=== PATIENT | female | born 1945 | race Caucasian/White ===

== ENCOUNTER → 2019-06-16 15:47 | Outpatient (CLI) | payer MEDICARE, SELFPAY ==
--- NOTE | ~2019-06-16 | MM_ITS ---
EXAMINATION: MM screening concepción BI w [place] HISTORY: Screening mammogram TECHNIQUE: Craniocaudal and mediolateral oblique 3-D tomosynthesis images were obtained and synthetic 2-D images were generated. CAD analysis was submitted and interpreted. COMPARISON: 01/31/2018 bilateral digital screening mammogram 01/31/2016 diagnostic right digital mammogram 12/13/2015 diagnostic right digital mammogram 05/26/2015 diagnostic right digital mammogram and complete right breast ultrasound 05/11/2015 bilateral digital screening mammogram BREAST PARENCHYMAL COMPOSITION: There are scattered areas of fibroglandular density. FINDINGS: There is a biopsy marker on the right; history of prior benign right breast biopsy. Scattered bilateral punctate benign microcalcifications. There is a calcified microhematoma on the le ft. There is no evidence of suspicious mass, calcification, or architectural distortion to suggest ma lignancy in either breast. There has been no suspicious interval change. IMPRESSION: 1. No mammographic evidence of malignancy. 2. Recommend routine screening mammography in one year. BI-RADS Category 1: Negative Reviewed, dictated and finalized at location A. 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
== END ==
PROVIDERS: PCP Emergency Medicine; Visit Provider Emergency Medicine
DX: Z12.31 Encounter for screening mammogram for malignant neoplasm of breast (principal)
CPT/HCPCS: 77063; 77067

== ENCOUNTER → 2019-06-19 11:22 | Outpatient (CLI) | payer MEDICARE, SELFPAY ==
--- NOTE | ~2019-06-19 | DEXA_ITS ---
Bone Density Report Name: Leisa Boyd Age: 73 Sex: Female Ethnicity: White Date of : 1945 Indication: postmenopausal; screening for osteoporosis; height loss; hysterectomy; Referring Provider: ADRIÁN SERRANO Study: Bone densitometry was performed. Exam Date: June 19, 2019 Accession number: [id number] Bone Density: Region BMD T-score Z-score Classification Femoral Neck (Left) 0.768 -0.7 1.2 Normal Total Hip (Left) 0.892 -0.4 1.3 Normal Femoral Neck (Right) 0.761 -0.8 1.2 Normal Total Hip (Right) 0.859 -0.7 1.0 Normal Total Hip Mean 0.876 -0.6 1.2 Normal World Health Organization criteria for BMD impression classify patients as: Normal (T-score at or above -1.0), Osteopenia (T-score between -1.0 and -2.5), or Osteoporosis (T-score at or below -2.5). 10-year Fracture Risk: FRAX not reported because: All T-scores for Spine Total, Hip Total, Femoral Neck at or above -1.0 Clinical Information Provided by Patient: Has used the following medications: Vitamin D Has the following medical conditions: Hysterectomy Patient maximum height was 64.0 Menopause Age: 37 No regular weight bearing exercise Drinks caffeinated beverages Onset of menses at age 12 Number of children 2 Impression: The patient has normal bone mass. Discussion: BONE DENSITY IS ABOVE THE MINIMUM DESIRABLE LEVEL AT ALL SKELETAL SITES TESTED. This patient?s bone mineral density is above the minimum desirable level (T-score -1.0 or better) at all sites measured. The patient should follow a healthful lifestyle (good nutrition with adequate calcium and vitamin D, and appropriate weight-bearing exercise). Follow-Up: Consider repeating this study in 5 years or sooner if there is some new clinical indication. Reported by: EDVIN on 06/19/2019 12:00:00 PM. Reviewed, dictated and finalized at location AMaggie [facility]ITAL[facility]
== END ==
PROVIDERS: Visit Provider Emergency Medicine
DX: Z13.820 Encounter for screening for osteoporosis (principal); Z78.0 Asymptomatic menopausal state
CPT/HCPCS: 77080

== ENCOUNTER → 2020-08-25 16:38 | Outpatient (CLI) | payer MEDICARE, SELFPAY ==
--- NOTE | ~2020-08-25 | MM_ITS ---
EXAMINATION: MM screening [facility] BI w [place] HISTORY: Screening mammogram TECHNIQUE: Craniocaudal and mediolateral oblique 3-D tomosynthesis images were obtained and synthetic 2-D images were generated. CAD analysis was submitted and interpreted. COMPARISON: 06/16/2019, 01/31/2018, 01/31/2016, 12/13/2015 BREAST PARENCHYMAL COMPOSITION: There are scattered areas of fibroglandular density. FINDINGS: There is no evidence of suspicious mass, calcification, or architectural distortion to sugg est malignancy in either breast. There has been no suspicious interval change. IMPRESSION: 1. No mammographic evidence of malignancy. 2. Recommend routine screening mammography in one year. BI-RADS Category 1: Negative Reviewed, dictated and finalized at location A.
== END ==
PROVIDERS: PCP Emergency Medicine; Visit Provider Emergency Medicine
DX: Z12.31 Encounter for screening mammogram for malignant neoplasm of breast (principal)
CPT/HCPCS: 77063; 77067

== ENCOUNTER 2021-04-26 00:27 | Day surgery (SDC) | payer MEDICARE, SELFPAY ==
[2021-04-13 14:45] VITALS: BMI 32.0
[2021-04-26 10:00] VITALS: BP 132/102; PULSE 105; RESP 18; TEMP 36.5; O2SAT 96
--- NOTE | 2021-04-26 10:10 | WPDANESEPPF ---
Anes - Initial Pre Proc Eval Procedure: Operation Date: 04/26/21 11:30 Proposed Procedures p Screening Colonoscopy - Tavo Teixeira MD Date/Time: 04/26/21 10:10 Surgeon: Tavo Teixeira MD Pre Op Diagnosis: neoplasm screening Patient Data Age: 75 Gender: F Height: 1.6 m Weight: 80.5 kg Last Vital Signs Temp 97.7 F 04/26/21 10:00 Pulse 105 H 04/26/21 10:00 Resp 18 04/26/21 10:00 BP 132/102 H 04/26/21 10:00 Pulse Ox 96 04/26/21 10:00 Allergies Allergy/AdvReac Type Severity Reaction Status Date / Time acetaminophen Allergy Unknown RASH/ITCHIN Verified 04/26/21 09:58 G POISON SUMAC Allergy Severe Unknown Uncoded 05/25/19 10:09 POISON JOSE FRANCISCO Allergy Unknown Unknown Uncoded 05/25/19 10:09 POISON [place]AK Allergy Unknown Unknown Uncoded 05/25/19 10:09 Home Medications Medication Instructions Recorded Confirmed Type cholecalciferol (vitamin D3) 125 5,000 unit PO DAILY 05/25/19 04/13/21 History mcg (5,000 unit) capsule mecobalamin (vitamin B12) 1,000 1,000 mcg SUBLINGUAL DAILY 05/25/19 04/13/21 History mcg disintegrating tablet,sublingual naproxen 500 mg tablet 500 mg PO DAILY PRN tablet 05/25/19 04/13/21 History sertraline 100 mg tablet See Rx Instructions .ROUTE 03/27/21 04/13/21 Rx .COMPLEX #90 tablet Patient hx anesthesia problems: none Family hx anesthesia problems: none Results Review: All pre-operative results and documents have been reviewed as part of the pre-operative evaluation. [facility] Past Medical History Medical History (Updated 02/28/21 @ 11:50 by Brandee Randhawa) Acute bacterial tonsillitis Anemia Arthritis Chicken pox Depression Lack of bladder control Ovarian cyst (~1970) Scarlet fever Vaginal infection Surgical History Surgical History H/O total hysterectomy (~1985) History of laminectomy (~2014) History of spinal fusion (~2014) L2-L5 Family History Family History Mother Hypertension Family history of arthritis Sibling Hypertension Family history of elevated blood lipids Grandparent Family history of malignant neoplasm of breast Family history of emphysema Family history of heart disease in male family member before age 55 Father Family history of coronary artery disease Family history of heart disease in male family member before age 55 Social History Social History Smoking status: Never smoker Alcohol intake: current Drinks per week: 14 Substance use: never Substance use type: does not use Living arrangements: alone Spiritual care concerns: No Anes - Eval Final PreProcedure Day of Procedure 04/26/21 10:10 Patient weight: obese Heart: regular rate and rhythm Airway: Mallampati scale class II Neurological: alert and oriented Last oral intake: >/= 8 hours ASA classification: II Emergent: no Anesthetic plan: proceed Anesthesia type and monitoring: general GIVS and standard monitoring Results Review: All pre-operative results and documents have been reviewed as part of the pre-operative evaluation. Informed Consent: The patient's anesthetic plan and its attendant risks and benefits were discussed with the patient/family/POA. Questions were solicited and answers provided to the satisfaction of the patient/family/POA.
[2021-04-26] MEDS: LACTATED RINGERS 1,000 ML 150 ML IV CONT (10:11)
--- NOTE | 2021-04-26 10:43 | PM.HPGS ---
History of Present Illness History of Present Illness Consent: Risks, benefits, and alternatives have been discussed and questions answered. Patient agrees to proceed with procedure. Chief complaint: neoplasm screening Narrative: Leisa Boyd is a 75 year old female with history of colon polyp, she is due to have another one Review of Systems Constitutional: Constitutional: Denies headache(s) and Denies weakness Eyes: Eyes: Denies blurry vision ENT: Reports Normal hearing present, Denies headache(s) and Denies neck pain Cardiovascular: Cardiovascular: Denies chest pain and Denies dyspnea Respiratory: Respiratory: Denies dyspnea Gastrointestinal: Gastrointestinal: Reports no additional gastrointestinal complaints Genitourinary: Genitourinary: Denies dysuria Musculoskeletal: Musculoskeletal: Denies neck pain Integumentary/Breasts: Skin/Breast: Denies dry skin Neurologic: Reports Normal hearing present, Denies headache(s) and Denies weakness Psychiatric: Psychiatric: Denies anxiety Endocrine: Endocrine: Denies change in body appearance Hematologic/Lymphatic: Hematologic/Lymphatic: Denies easy bleeding Allergic/Immunologic: Allergic/Immunologic: Denies urticaria PMFSH Past Medical History Medical History (Updated 02/28/21 @ 11:50 by Brandee Randhawa) Acute bacterial tonsillitis Anemia Arthritis Chicken pox Depression Lack of bladder control Ovarian cyst (~1970) Scarlet fever Vaginal infection Surgical History Surgical History H/O total hysterectomy (~1985) History of laminectomy (~2014) History of spinal fusion (~2014) L2-L5 Family History Family History Mother Hypertension Family history of arthritis Sibling Hypertension Family history of elevated blood lipids Grandparent Family history of malignant neoplasm of breast Family history of emphysema Family history of heart disease in male family member before age 55 Father Family history of coronary artery disease Family history of heart disease in male family member before age 55 Social History Social History Smoking status: Never smoker Alcohol intake: current Drinks per week: 14 Substance use: never Substance use type: does not use Living arrangements: alone Spiritual care concerns: No Meds Home Medications and Allergies Home Medications Medication Instructions Recorded Confirmed Type cholecalciferol (vitamin D3) 125 5,000 unit PO DAILY 05/25/19 04/13/21 History mcg (5,000 unit) capsule mecobalamin (vitamin B12) 1,000 1,000 mcg SUBLINGUAL DAILY 05/25/19 04/13/21 History mcg disintegrating tablet,sublingual naproxen 500 mg tablet 500 mg PO DAILY PRN tablet 05/25/19 04/13/21 History sertraline 100 mg tablet See Rx Instructions .ROUTE 03/27/21 04/13/21 Rx .COMPLEX #90 tablet Allergies Allergy/AdvReac Type Severity Reaction Status Date / Time acetaminophen Allergy Unknown RASH/ITCHIN Verified 04/26/21 09:58 G POISON SUMAC Allergy Severe Unknown Uncoded 05/25/19 10:09 POISON JOSE FRANCISCO Allergy Unknown Unknown Uncoded 05/25/19 10:09 POISON [place] Allergy Unknown Unknown Uncoded 05/25/19 10:09 Vital Signs Vital Signs - 24 hr 04/26/21 10:00 Temperature 97.7 F Pulse Rate 105 H Respiratory Rate 18 Blood Pressure 132/102 H Pulse Oximetry 96 Exam Const: General: comfortable and no acute distress HENMT: General nose exam: Normal nares present Eyes: General: appearance normal, both eyes and all related structures Neck: Neck: no JVD Resp: Auscultation: clear to auscultation bilaterally Cardio: Rate: regular rate Rhythm: regular rhythm GI: Inspection: non-distended GI Palp: Yes Soft to palpation Skin: General skin exam: normal color Neuro: General: gait normal Speech: normal speech Extrem: General: no
[2021-04-26 11:02] VITALS: BP 106/61; PULSE 78; RESP 20; O2SAT 94
[2021-04-26 11:12] VITALS: BP 105/61; PULSE 77; RESP 25; O2SAT 95
[2021-04-26 11:22] VITALS: BP 120/72; PULSE 69; RESP 24; O2SAT 95
== END 2021-04-26 11:34 | disposition home or self-care (01) ==
PROVIDERS: PCP Emergency Medicine; Visit Provider Internal Medicine Gastroenterology
PROC: 0DJD8ZZ Inspection of Lower Intestinal Tract, Via Natural or Artificial Opening Endoscopic (ICD-10-PCS; CPT 45378; principal; 2021-04-26 11:30)
DX: Z12.11 Encounter for screening for malignant neoplasm of colon (principal); D12.5 Benign neoplasm of sigmoid colon; D12.0 Benign neoplasm of cecum; F32.A Depression, unspecified; Z98.1 Arthrodesis status
CPT/HCPCS: 45385; 88305; J7120

== ENCOUNTER → 2022-08-01 11:01 | Outpatient (CLI) | payer MEDICARE, SELFPAY ==
--- NOTE | ~2022-08-01 | MM_ITS ---
EXAMINATION: MM screening concepción BI [place] HISTORY: Screening TECHNIQUE: Craniocaudal and mediolateral oblique 3-D tomosynthesis images were obtained and synthetic 2-D images were generated. CAD analysis was submitted and interpreted. COMPARISON: Comparison to multiple prior studies sequentially, with oldest reviewed study dated 05/26. BREAST PARENCHYMAL COMPOSITION: There are scattered areas of fibroglandular density. FINDINGS: There is no evidence of suspicious mass, calcification, or architectural distortion to sugg est malignancy in either breast. There has been no suspicious interval change. IMPRESSION: 1. No mammographic evidence of malignancy. 2. Recommend routine screening mammography in one year. BI-RADS Category 1: Negative Reviewed, dictated and finalized at location A.
--- NOTE | ~2022-08-01 | DEXA_ITS ---
Bone Density Report Name: JEANNE MUIR Age: 77 Sex: Female Ethnicity: White Date of : 1945 Indication: postmenopausal; screening for osteoporosis; height loss; prior fracture; hysterectomy; Referring Provider: ADRIÁN SERRANO Study: Bone densitometry was performed. Exam Date: August 01, 2022 Accession number: [id number] Bone Density: Region BMD T-score Z-score Classification Femoral Neck (Left) 0.728 -1.1 1.0 Osteopenia Total Hip (Left) 0.894 -0.4 1.4 Normal Femoral Neck (Right) 0.729 -1.1 1.1 Osteopenia Total Hip (Right) 0.850 -0.8 1.1 Normal Total Hip Mean 0.872 -0.6 1.3 Normal World Health Organization criteria for BMD impression classify patients as: Normal (T-score at or above -1.0), Osteopenia (T-score between -1.0 and -2.5), or Osteoporosis (T-score at or below -2.5). 10-year Fracture Risk(1): Major Osteoporotic Fracture 15% Hip Fracture 2.2% Reported Risk Factors: [place] (), Neck BMD=0.729, BMI=35.6, previous fracture (1) FRAX(R) Version 3.08. Fracture probability calculated for an untreated patient. Fracture probability may be lower if the patient has received treatment. Previous Exams: Region Exam Age BMD T-score BMD Change BMD Change Date g/cm2 vs Baseline vs Previous Total Hip(Left) 08/01/2022 77 0.894 -0.4 0.002 0.002 06/19/2019 73 0.892 -0.4 Total Hip(Right) 08/01/2022 77 0.850 -0.8 -0.009 -0.009 06/19/2019 73 0.859 -0.7 *Denotes significance at 95% confidence level, LSC for Total Hip = 0.027 g/cm2 Clinical Information Provided by Patient: Has had a low trauma fracture Has used the following medications: Vitamin D, Calcium Has the following medical conditions: Hysterectomy Patient maximum height was 65.0 Menopause Age: 37 No regular weight bearing exercise Drinks caffeinated beverages Onset of menses at age 12 Number of children 2 Impression: The patient has low bone mass, based on the Left Femoral Neck T-score. The patient has an estimated ten-year risk of hip fracture of 2.2% and an estimated ten-year risk of major fracture of 15%, based on the WHO FRAX algorithm. The patient has risk factors, including: previous fracture. No significant bone loss was observed. Discussion: BONE DENSITY IS LOW AT ONE OR MORE SKELETAL SITES. This patient's lowest T-score is low at one or more skeletal sites. It meets the World Health Organization's (WHO) criteria for ?low bone mass? (T-score between -1.0 and -2.5).
== END ==
PROVIDERS: PCP Emergency Medicine; Visit Provider Emergency Medicine
DX: Z12.31 Encounter for screening mammogram for malignant neoplasm of breast (principal); Z78.0 Asymptomatic menopausal state; M85.88 Other specified disorders of bone density and structure, other site; M85.851 Other specified disorders of bone density and structure, right thigh
CPT/HCPCS: 77063; 77067; 77080

== ENCOUNTER 2022-10-15 09:36 | Outpatient (CLI) | payer MEDICARE, SELFPAY ==
--- NOTE | ~2022-10-15 | XR_ITS ---
EXAMINATION: XR lumbar spine 2-3V DATE: 10/15/2022 09:56 INDICATION: Low back pain TECHNIQUE: Anteroposterior and lateral views of the lumbar spine, and cone-down lateral view of the l umbosacral junction were obtained. COMPARISON: 01/07/2014 FINDINGS: There are changes of interval posterior fusion and laminectomy from L2 through L5 and anter ior fusion at L3-4 and L4-5. Bone alignment is normal. There is no fracture. The vertebral body heigh ts are maintained. There is severe loss of intervertebral disc space height at L1-2 and in the visual ized lower thoracic spine. No fracture is identified. IMPRESSION: 1. Interval surgical change in the lumbar spine as described above and severe lumbar spondylosis with out acute findings. Reviewed, dictated and finalized at location A. IMPRESSION: 1. Interval surgical change in the lumbar spine as described above and severe l umbar spondylosis without acute findings.
== END 2022-10-15 09:37 | disposition home or self-care (01) ==
PROVIDERS: PCP Emergency Medicine; Visit Provider Emergency Medicine
DX: M47.816 Spondylosis without myelopathy or radiculopathy, lumbar region (principal); M54.50 Low back pain, unspecified
CPT/HCPCS: 72100

== ENCOUNTER 2024-03-27 14:52 | Outpatient (CLI) | payer MEDICARE, SELFPAY ==
--- NOTE | ~2024-03-27 | MM_ITS ---
EXAMINATION: MM screening concepción BI [place] HISTORY: Screening mammogram TECHNIQUE: Craniocaudal and mediolateral oblique 3-D tomosynthesis images were obtained and synthetic 2-D images were generated. CAD analysis was submitted and interpreted. COMPARISON: 08/01/2022, 08/25/2020, 06/16/2019 bilateral mammogram examinations BREAST PARENCHYMAL COMPOSITION: There are scattered areas of fibroglandular density. FINDINGS: There is a biopsy marker on the right; history of prior benign right breast biopsy. There is no evidence of suspicious mass, calcification, or architectural distortion to suggest malign jay in either breast. There has been no suspicious interval change. IMPRESSION: 1. No mammographic evidence of malignancy. 2. Recommend routine screening mammography in one year. BI-RADS Category 1: Negative Reviewed, dictated and finalized at location A. 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
== END 2024-03-27 14:53 | disposition home or self-care (01) ==
LOC: MICIMG 14:53
PROVIDERS: PCP Emergency Medicine; Visit Provider Emergency Medicine
DX: Z12.31 Encounter for screening mammogram for malignant neoplasm of breast (principal)
CPT/HCPCS: 77063; 77067

== ENCOUNTER 2024-04-07 10:40 | Emergency (ER) | payer MEDICARE, SELFPAY ==
[2024-04-07] VITALS (22 sets, daily range): BP systolic 107–157; BP diastolic 70–99; PULSE 74–110; RESP 9–20; TEMP 36.6; O2SAT 94–100
--- NOTE | ~2024-04-07 | CT_ITS ---
EXAMINATION: CTA chest PE protocol DATE: 04/07/2024 13:47 INDICATION: Tachycardia TECHNIQUE: Computed tomography (CT) pulmonary angiogram of the chest was performed with 100 mL Omnipa que-350 intravenous contrast. Additional 3D reconstructions utilizing coronal maximum intensity proje ction (MIP) were performed. Automated exposure control and iterative reconstruction technique were em ployed. The dose-length product was 371.34 mGy-cm. COMPARISON: None FINDINGS: No pulmonary blood some. Dependent predominant groundglass opacities and some mosaic attenuation in t he lungs likely related to incomplete inspiratory effort with mild atelectasis. 8 x 4 mm right lower lobe nodule along the posterolateral right hemidiaphragm. No pleural effusion. Heart size is normal. Thoracic aorta is normal in caliber with no dissection. Mildly prominent but still normal-sized right hilar lymph nodes which may be reactive. No pathologically enlarged thoracic lymphadenopathy. Visual ized upper abdomen is unremarkable. Mild thoracic kyphosis with chronic appearing mild anterior wedgi ng of a few mid and lower thoracic vertebral bodies. Severe thoracic and upper lumbar spondylosis. Pa rtially visualized pedicle screws at L2 for a multilevel lumbar posterior spinal fusion extending thr ough at least L5 on the coat hanger shaper machine operator topogram. There is also an interbody fusion device on the coat hanger shaper machine operator topogra m for anterior spinal fusion at L3-L4. IMPRESSION: 1. Mild dependent predominant atelectasis in both lungs likely related to limited inspiratory effort. No pulmonary embolism or other acute cardiopulmonary disease. Reviewed, dictated and finalized at location A. SORSHIP MANAGER IMPRESSION: 1. Mild dependent predominant atelectasis in both lungs likely related to limit ed inspiratory effort. No pulmonary embolism or other acute cardiopulmonary dis ease.
--- NOTE | ~2024-04-07 | XR_ITS ---
EXAMINATION: XR chest 2V DATE: 04/07/2024 11:21 INDICATION: Shortness of breath TECHNIQUE: PA and lateral views of the chest were obtained. COMPARISON: None FINDINGS: The lungs are clear with no focal airspace opacities, pulmonary edema, pleural effusion or pneumothor ax. The cardiomediastinal silhouette is normal. Mild thoracic kyphosis with mild anterior wedging of a few mid and lower thoracic vertebral bodies and severe spondylosis. Partially visualized instrument ed anterior and posterior lumbar spinal fusion. IMPRESSION: 1. No acute cardiopulmonary disease. Reviewed, dictated and finalized at location A. RDS MANAGEMENT CLERK
--- NOTE | 2024-04-07 10:56 | ECG_ITS ---
Test Date: 2024-04-07 11:05:32 Measurements Intervals [place] Rate: 100 P: 26 FL: 181 QRS: 2 QRSD: 82 T: -9 QT: 316 QTc: 407 Interpretive Statements SINUS TACHYCARDIA NONSPECIFIC T-WAVE ABNORMALITY No previous ECG available for comparison Electronically Signed On 04-07-2024 15:29:51 WATCHMAKER APPRENTICE by Reena Ching M.D.
[2024-04-07 11:27] LABS: Basophils Absolute Auto 0.1 K/mm3 (0.0-0.1); Basophils Percent Auto 0.8 % (0.2-1.2); Eosinophils Absolute Auto 0.2 K/mm3 (0-0.3); Hematocrit 45.1 % (37.0-47.0); Hemoglobin 14.6 g/dL (12.0-15.0); Immature Granulocyte Absolute 0.02 K/mm3 (0.00-0.031); Immature Granulocyte Percent A 0.3 % (0-0.5); Lymphocytes Absolute Auto 1.74 K/mm3 (0.9-3.2); Lymphocytes Percent Auto 29.1 % (18.3-44.2); Mean Corpuscular HGB Conc 32.4 g/dl (32-36); Mean Corpuscular Hemoglobin 29.6 pg (26-34); Mean Corpuscular Volume 91.3 fl (80-100); Mean Platelet Volume 9.4 fl (7.4-10.4); Monocytes Absolute Auto 0.8 K/mm3 (0.1-0.6); Monocytes Percent Auto 13.2 % (2.6-8.5); Neutrophils Absolute Auto 3.2 K/mm3 (1.3-6.7); Neutrophils Percent Auto 53.6 % (45.5-73.1); Platelet Count Result 256 k/mm3 (150-375); Red Blood Count 4.94 M/mm3 (4.2-5.4)
[2024-04-07 11:32] LABS: Alanine Aminotransferase 19 U/L (6-35); Albumin Level 4.3 g/dL (3.5-5.1); Alkaline Phosphatase 78 U/L (38-126); Anion Gap 4 mmol/L (4-12); Aspartate Amino Transferase 26 U/L (14-36); Bilirubin,Total 0.9 mg/dL (0.2-1.3); Blood Urea Nitrogen 14 mg/dL (7-17); Carbon Dioxide 25 mmol/L (22-30); Chloride 107 mmol/L (98-107); Estimated CRCL calculation 42 ml/min; Estimated Glomerular Filt Rate 54; Glucose 104 mg/dL (65-110); Potassium 4.2 mmol/L (3.4-5.0); Sodium 136 mmol/L (137-145)
--- NOTE | 2024-04-07 13:01 | ED_ITS ---
HPI - General Adult General Chief complaint: Shortness of Breath/Dyspnea Stated complaint: sob, palpitations Time Seen by Provider: 04/07/24 12:38 History of Present Illness HPI narrative: 78-year-old female presenting to the emergency department for evaluation for exertional shortness of breath that is been worsening over the course of the last month. Patient states that she does notice the social shortness of breath that does affect her daily activity. Patient denies any associated chest pain with this. Patient denies any prior history of CHF and does not take a water pill. Patient denies any recent water weight gain. Patient denies any recent illnesses coughs colds or fevers. Patient did have follow-up with her primary care physician today is found to have a heart rate approximately 120 as she had walked back to the room and patient was emergently transferred to the emergency department for further evaluation. Upon arrival emergency department patient is heart rate was elevated. Related Data Home Medications Medication Instructions Recorded Confirmed cholecalciferol (vitamin D3) 125 5,000 unit PO DAILY 05/25/19 04/07/24 mcg (5,000 unit) capsule mecobalamin (vitamin B12) 1,000 1,000 mcg sublingual DAILY 05/25/19 04/07/24 mcg disintegrating tablet,sublingual naproxen 500 mg tablet 500 mg PO DAILY PRN Pain 05/25/19 04/07/24 Allergies Allergy/AdvReac Type Severity Reaction Status Date / Time acetaminophen Allergy Unknown RASH/ITCHIN Verified 04/07/24 10:08 G POISON SUMAC Allergy Severe Unknown Uncoded 04/07/24 10:08 POISON JOSE FRANCISCO Allergy Unknown Unknown Uncoded 04/07/24 10:08 POISON OAK Allergy Unknown Unknown Uncoded 04/07/24 10:08 Review of Systems Review of Systems: All systems reviewed & are unremarkable except as noted in HPI and below PMFSH Past Medical History Medical History Acute bacterial tonsillitis Anemia Anemia Arthritis Chicken pox Chronic diffuse otitis externa of both ears Depression History of abnormal mammogram History of UTI Lack of bladder control Low back pain Obesity, unspecified (09/12/16) Ovarian cyst (~1970) Scarlet fever Vaginal infection Surgical History Surgical History H/O total hysterectomy (~1985) History of laminectomy (~2014) History of spinal fusion (~2014) L2-L5 Family History Family History Mother Hypertension Family history of arthritis Sibling Hypertension Family history of elevated blood lipids Grandparent Family history of malignant neoplasm of breast Family history of emphysema Family history of heart disease in male family member before age 55 Father Family history of coronary artery disease Family history of heart disease in male family member before age 55 Social History Social History Smoking status: Never smoker Alcohol intake: current Drinks per week: 14 Substance use: never Substance use type: does not use Do You Feel Safe in your Home?: Yes Lack of Transportation: No Lack of Food: Never True Current Housing: I Have Housing Concerned About Future Housing: No Difficulty Paying Gas/Electric Bills: No Difficulty Paying for Meds: No Currently Unemployed: No Education: Trade/Vocational Certificate Difficulty w/ Childcare or Family Care: No Living arrangements: alone Spiritual care concerns: No Exam Narrative: APPEARANCE: Well appearing, no pain, no distress, well-nourished. HEAD: normocephalic, atraumatic. EYES: PERRLA/EOMI, conjunctivae clear. NOSE: Normal no drainage EARS:TMS clear with good light reflex. THROAT: Pharynx clear, no exudate. NECK: Supple. No adenopathy, no masses. RESPIRATORY: Airway patent, respirations nonlabored. Clear to auscultation bilaterally, no rales, rhonchi, wheezing. CARDIOVASCULAR: Regular rate and rhythm without murmurs rubs or gallops. ABDOMINAL: Soft, nontender, nondistended, normal bowel sounds MUSCULOSKELETAL: Moves all extremities. Strength/ROM intact, No edema, No calf tenderness. NEURO: Alert. Cranial nerves II through XII intact. Grossly SKIN: Warm, dry. Normal Color Course Vital Signs Vital signs: Vital Signs Temperature 97.9 F 04/07/24 10:53 Pulse Rate 110 H 04/07/24 10:53 Respiratory Rate 20 04/07/24 10:53 Blood Pressure 124/87 04/07/24 10:53 Pulse Oximetry 97 04/07/24 10:53 Oxygen Delivery Room Air 04/07/24 10:53 Temperature 97.9 F 04/07/24 10:53 Pulse Rate 74 04/07/24 15:01 Respiratory Rate 9 L 04/07/24 15:01 Blood Pressure 157/85 H 04/07/24 15:01 Pulse Oximetry 98 04/07/24 15:01 Oxygen Delivery Room Air 04/07/24 10:56 Medical Decision Making MDM Narrative Medical decision making narrative: 78-year-old female presents emergency department for evaluation for exertional shortness of breath. Patient was able to ambulate in the emergency department and maintained a stable pulse ox and did not have a rapid heart rate. Patient was asymptomatic when ambulating emergency department. Patient states the dy spnea that she ambulated was comfortable to a distance she was walking her home. Patient is afebrile with no leukocytosis and hemoglobin of 14.6. Patient's D- dimer was elevated at 0.5 to patient's BNP was not significantly elevated. Chest x-ray showed no acute cardiopulmonary abnormality. Due to the patient having elevated D-dimer and concern for pulmonary embolism CTA was ordered and showed no evidence of pulmonary embolism. On re-evaluation patient was able to ambulate with no hypoxia patient felt improved. Patient does have an outpatient stress test scheduled by her primary care physician. Patient family updated on results of the workup they are comfortable plan for discharge and close follow- up. Differential Diagnosis Differential Diagnosis: Pulmonary embolism, pneumonia, ACS, CAD Vital Signs Vital Signs: Vital Signs Temperature 97.9 F 04/07/24 10:53 Pulse Rate 110 H 04/07/24 10:53 Respiratory Rate 20 04/07/24 10:53 Blood Pressure 124/87 04/07/24 10:53 Pulse Oximetry 97 04/07/24 10:53 Oxygen Delivery Room Air 04/07/24 10:53 Temperature 97.9 F 04/07/24 10:53 Pulse Rate 74 04/07/24 15:01 Respiratory Rate 9 L 04/07/24 15:01 Blood Pressure 157/85 H 04/07/24 15:01 Pulse Oximetry 98 04/07/24 15:01 Oxygen Delivery Room Air 04/07/24 10:56 Lab Data Lab results reviewed: Yes I reviewed the patient's lab results. 04/07/24 11:11 04/07/24 11:11 Labs: Lab Results 04/07/24 Range/Units 11:11 WBC 6.0 (4.5-10.0) K/mm3 RBC 4.94 (4.2-5.4) M/mm3 Hgb 14.6 (12.0-15.0) g/dL Hct 45.1 (37.0-47.0) % MCV 91.3 (80-100) fl MCH 29.6 (26-34) pg MCHC 32.4 (32-36) g/dl RDW 13.0 (11.5-14.5) % Plt Count 256 (150-375) k/mm3 MPV 9.4 (7.4-10.4) fl Immature Gran % (Auto) 0.3 (0-0.5) % Neut % (Auto) 53.6 (45.5-73.1) % Lymph % (Auto) 29.1 (18.3-44.2) % [place] % (Auto) 13.2 H (2.6-8.5) % Eos % (Auto) 3.0 (0-4.4) % Baso % (Auto) 0.8 (0.2-1.2) % Lymph # (Auto) 1.74 (0.9-3.2) K/mm3 [place] # (Auto) 0.8 H (0.1-0.6) K/mm3 Eos # (Auto) 0.2 (0-0.3) K/mm3 Baso # (Auto) 0.1 (0.0-0.1) K/mm3 Abs Immat Gran (auto) 0.02 (0.00-0.031) K/mm3 Absolute Neuts (auto) 3.2 (1.3-6.7) K/mm3 Absolute Nucleated RBC 0.000 (0.0-0.012) K/mm3 Nucleated RBC % 0.0 (0.0-0.2) % D-Dimer 0.52 H (<0.48) ug/mL Sodium 136 L (137-145) mmol/L Potassium 4.2 (3.4-5.0) mmol/L Chloride 107 (98-107) mmol/L Carbon Dioxide 25 (22-30) mmol/L Anion Gap 4 (4-12) mmol/L BUN 14 (7-17) mg/dL Creatinine 1.00 (0.7-1.0) mg/dL Estim Creat Clear Calc 42 ml/min Estimated GFR 54 L (59 - ) Glucose 104 (65-110) mg/dL Calcium 9.0 (8.4-10.2) mg/dL Total Bilirubin 0.9 (0.2-1.3) mg/dL AST 26 (14-36) U/L ALT 19 (6-35) U/L Alkaline Phosphatase 78 (38-126) U/L NT-Pro-B Natriuret Pep 147 H (19.9-100) pg/mL Total Protein 7.0 (6.3-8.2) g/dL Albumin 4.3 (3.5-5.1) g/dL Imaging Data Radiologist's impression: Impressions Chest X-Ray 04/07/24 11:25 IMPRESSION: 1. No acute cardiopulmonary disease. Chest CTA 04/07/24 13:48 IMPRESSION: 1. Mild dependent predominant atelectasis in both lungs likely related to limited inspiratory effort. No pulmonary embolism or other acute cardiopulmonary disease. Discharge Plan Discharge Clinical Impression: Exertional dyspnea Patient Disposition: Home, Self-Care Condition: Stable Instructions: Antibiotic Form, Dyspnea (ED) Additional Instructions: Have close follow-up with you primary care physician. If you have any worsening symptoms then please call or return to the emergency department Prescriptions: No Action cholecalciferol (vitamin D3) 125 mcg (5,000 unit) capsule 5,000 unit PO DAILY mecobalamin (vitamin B12) 1,000 mcg tablet,disintegrating 1,000 mcg SUBLINGUAL DAILY Rx Instructions: place tablet under tongue and allow to dissolve for at least30 secs before swallowing naproxen 500 mg tablet 500 mg PO DAILY PRN (Reason: Pain) escitalopram oxalate 10 mg tablet See Rx Instructions .ROUTE .COMPLEX Qty: 90 2RF Dose Instruction: TAKE 1 TABLET BY MOUTH DAILY Rx Instructions: TAKE 1 TABLET BY MOUTH DAILY temazepam 15 mg capsule 15 mg PO QHS PRN (Reason: sleep) Qty: 30 1RF Follow-up/Referrals: Heriberto Omalley MD [Primary Care Provider] -
[2024-04-07 13:12] LABS: D Dimer 0.52 ug/mL (<0.48)
[2024-04-07 13:26] LABS: NT Pro B Type Natriuretic Pept 147 pg/mL (19.9-100)
== END 2024-04-07 15:16 | disposition home or self-care (01) ==
PROVIDERS: Emergency Provider Emergency Medicine; PCP Emergency Medicine
DX: R06.00 Dyspnea, unspecified (principal); D64.9 Anemia, unspecified; M19.90 Unspecified osteoarthritis, unspecified site; F32.A Depression, unspecified; Z87.440 Personal history of urinary (tract) infections
CPT/HCPCS: 36415; 71046; 71275; 80053; 83880; 85025; 85380; 93005; 99284; Q9967

== ENCOUNTER 2024-04-23 10:07 | Outpatient (CLI) | payer MEDICARE, SELFPAY ==
--- NOTE | ~2024-04-23 | NM_ITS ---
EXAMINATION: NM stanislaw stress w perfusion DATE: 04/23/2024 12:54 TRAVEL COORDINATOR INDICATION: Dyspnea TECHNIQUE: Rest images were obtained following intravenous administration of 9.9 mCi Tc99m tetrofosmi n (Myoview). The patient was infused intravenously with Lexiscan (regadenoson). Then, 31.2 mCi Tc99m tetrofosmin (Myoview) was administered intravenously, and stress images were obtained. Data was recon structed into short axis and horizontal and vertical long axis SPECT images. Gated SPECT images were also obtained. COMPARISON: None. FINDINGS: There is no definite reversible or fixed perfusion abnormality to suggest ischemia or infar ction. There is no segmental wall motion abnormality. Left ventricular ejection fraction measures 6 6%. IMPRESSION: 1. No definite ischemia or infarct. 2. Normal left ventricular ejection fraction measuring 66%. Reviewed, dictated and finalized at location B. EL COORDINATOR
--- NOTE | 2024-04-23 10:32 | EST_ITS ---
Patient Info Name: Leisa Boyd Age: 78 years : 1945 Gender: Female Ht: 61 in Wt: 193 lbs BSA: 1.98 m2 Exam Date: 04/23/2024 11:10 AM Exam Location: Echo Lab Patient Status: Outpatient Admit Date: 04/23/2024 Staff Ordering Physician: Heriberto Omalley MD Attending Provider: Heriberto Omalley MD Exercise Technologist: Rohini Phan RDCS Exam Type: CA stress stanislaw w NM Study Info Indications R06.09 - Other forms of dyspnea A regadenoson stress test was performed. Summary 1. 1. Negative lexiscan stress test for ischemic ST changes by ECG criteria. 2. 2. Stable hemodynamics throughout the test. 3. 3. Nuclear scan to follow and will be reported separately. Please correlate with it. 4. 4. Patient informed of the above results. Protocol: Lexiscan Stress ECG Details Stage: REST Duration (min): 0 min : 37 sec HR (bpm): 89 SBP (mmHg): 127 DBP (mmHg): 98 Stage: REST Duration (min): 5 min : 54 sec HR (bpm): 89 SBP (mmHg): 127 DBP (mmHg): 98 Stage: STAGE 1 Duration (min): 0 min : 59 sec HR (bpm): 97 SBP (mmHg): 137 DBP (mmHg): 101 Stage: RECOVERY Duration (min): 1 min : 0 sec HR (bpm): 109 SBP (mmHg): 134 DBP (mmHg): 96 Stage: RECOVERY Duration (min): 2 min : 0 sec HR (bpm): 107 SBP (mmHg): 134 DBP (mmHg): 96 Stage: RECOVERY Duration (min): 3 min : 0 sec HR (bpm): 103 SBP (mmHg): 130 DBP (mmHg): 92 Stage: RECOVERY Duration (min): 4 min : 0 sec HR (bpm): 102 SBP (mmHg): 130 DBP (mmHg): 92 Stage: RECOVERY Duration (min): 4 min : 45 sec HR (bpm): 98 SBP (mmHg): 125 DBP (mmHg): 95 Rest HR: 89 bpm Peak HR: 112 bpm Rest Sys BP: 127 mmHg Peak Sys BP: 137 mmHg Max Pred HR: 143 bpm % Max Pred HR: 78 % Target HR: 122 bpm Max RPP: 15,344 bpm*mmHg Termination Reason: Completed protocol Cardiac Symptoms: Shortness of breath Total Time: 1 min : 0 sec Rest Hernandez BP: 98 mmHg Peak Hernandez BP: 101 mmHg Total Dose: 0.4 mg Resting ECG Sinus rhythm. Stress ECG No ST changes. Arrhythmias None. Report Signatures
== END 2024-04-23 10:08 | disposition home or self-care (01) ==
PROVIDERS: PCP Emergency Medicine; Visit Provider Emergency Medicine
DX: R06.09 Other forms of dyspnea (principal)
CPT/HCPCS: 78452; 93017; A9502; J2785

== ENCOUNTER 2024-04-28 09:22 | Outpatient (CLI) | payer MEDICARE, SELFPAY ==
--- NOTE | 2024-04-28 10:00 | ECHO_ITS ---
Patient Info Name: Leisa Boyd Age: 78 years : 1945 Gender: Female Ht: 61 in Wt: 193 lbs BSA: 1.98 m2 HR: 84 bpm BP: 133 / 79 mmHg Technical Quality: Fair Exam Date: 04/28/2024 9:55 AM Exam Location: Echo Lab Patient Status: Outpatient Admit Date: 04/28/2024 Staff Ordering Physician: Heriberto Omalley MD Bin Operator: Briseida Little RDCS Attending Provider: Heriberto Omalley MD Referring Physician: Lyssa WHITTINGTON; Exam Type: CA echo doppler color flow Study Info Indications - APNEA/ NOT ELSEWHERE CLASSIFIED Complete two-dimensional, color flow and Doppler transthoracic echocardiogram is performed. Summary 1. Complete two-dimensional, color flow and Doppler transthoracic echocardiogram is performed. 2. Left ventricular chamber dimension is normal. 3. Left ventricular systolic function is normal, estimated at 60-65%. 4. There is mild concentric increased left ventricular wall thickness. 5. The left ventricular diastolic function is grade I diastolic dysfunction. 6. E/e' 4 is not elevated. 7. Left atrial chamber dimension is mildly enlarged. 8. There is trace aortic valve regurgitation. 9. Dilated inferior vena cava with >50% collapse upon inspiration consistent with elevated right atrial pressure, 10 mmHg. Left Ventricle E/e' 4 is not elevated. Left ventricular chamber dimension is normal. Left ventricular systolic function is normal, estimated at 60-65%. There is mild concentric increased left ventricular wall thickness. The left ventricular diastolic function is grade I diastolic dysfunction. Right Ventricle Right ventricular chamber dimension is normal. Right ventricular systolic function is normal. Left Atria Left atrial chamber dimension is mildly enlarged. Right Atria Right atrial chamber dimension is normal. Aortic Valve The aortic valve is trileaflet. There is no aortic valve stenosis. There is trace aortic valve regurgitation. Pulmonic Valve There is no pulmonic regurgitation. Mitral Valve There is no mitral valve stenosis. There is no mitral valve regurgitation. Tricuspid Valve There is no tricuspid valve regurgitation. Pericardium/Pleural There is no pericardial effusion. Inferior Vena Cava Dilated inferior vena cava with >50% collapse upon inspiration consistent with elevated right atrial pressure, 10 mmHg. Aorta The aortic root size at the sinus of Valsalva is normal. Left Ventricular Outflow Tract Name Value Normal LVOT 2D LVOT Diameter 2.2 cm LVOT Doppler LVOT Peak Gradient 3 mmHg LVOT Mean Gradient 2 mmHg LVOT VTI 18 cm LVOT VTI/AV VTI Ratio 0.7 LVOT Stroke Volume 65 ml LVOT CO 5.1 l/min LVOT CI 2.6 l/min/m2 Pulmonic Valve Name Value Normal RVOT Doppler RVOT Peak Gradient 1 mmHg PV Doppler PV Peak Gradient 2 mmHg Mitral Valve Name Value Normal MV Doppler MV Decel [place] 341 cm/s2 MV PHT 38 ms MV Area (PHT) 5.8 cm2 4.0-5.0 MV Diastolic Function MV E Peak Velocity 45 cm/s MV A Peak Velocity 79 cm/s MV E/A 0.6 MV Decel Time 131 ms MV Annular TDI MV E/e' (Septal) 5.0 <=8.0 MV E/e' (Lateral) 3.8 <=8.0 MV E/e' (Average) 4.4 Tricuspid Valve Name Value Normal Estimated PAP/RSVP RA Pressure 10 mmHg <=5 Aorta Name Value Normal Ascending Aorta Ao Root Diameter (MM) 2.9 cm Ao Root Diam Index (MM) 1.5 cm/m2 Aortic Valve Name Value Normal AV Doppler AV Peak Velocity 129 cm/s AV Peak Gradient 7 mmHg AV Mean Gradient 4 mmHg AV VTI 25 cm AV Area (Cont Eq VTI) 2.6 cm2 >=3.0 AV Area (Cont Eq Roni) 2.4 cm2 AV Regurgitation 2D LVOT Area 3.7 cm2 AV Regurgitation Doppler AR Decel Time 1,886 ms AR Decel [place] 193 cm/s2 AR PHT 547 ms Ventricles Name Value Normal LV Dimensions 2D/MM IVS Diastolic Thickness (2D) 1.8 cm 0.6-1.0 LVID Diastole (2D) 4.1 cm 3.8-5.2 LVIW Diastolic Thickness (2D) 1.0 cm 0.6-0.9 LVID Systole (2D) 2.9 cm 2.2-3.5 LVOT Diameter 2.2 cm LV Mass (2D Cubed) 216.79 g 67.00-162.00 LV Mass Index (2D Cubed) 109 g/m2 43-95 Relative Wall Thickness (2D) 0.51 LV Fractional Shortening/Ejection Fraction 2D/MM LV Fractional Shortening (2D) 29 % 27-45 LV EF (2D Teicholz) 56 % 54-74 LV Diastolic Volume (4C MOD) 88 ml LV EF (4C MOD) 54 % LV Diastolic Volume (2C MOD) 63 ml LV EF (2C MOD) 61 % LV Diastolic Volume (BP MOD) 77 ml 46-106 LV Diastolic Volume Index (BP MOD) 39 ml/m2 29-61 LV Systolic Volume (BP MOD) 33 ml 14-42 LV Systolic Volume Index (BP MOD) 17 ml/m2 8-24 LV EF (BP MOD) 57 % 54-74 LV Diastolic Length (4C) 7.4 cm LV Systolic Length (4C) 6.2 cm LV Stroke Volume (4C MOD) 48 ml Atria Name Value Normal LA Dimensions LA Dimension (MM) 4.8 cm 2.7-3.8 LA Volume (4C A-L) 65 ml LA Volume (BP A-L) 63 ml RA Dimensions RA Area (4C) 11.8 cm2 <=18.0 Report Signatures
--- OUTSIDE RECORDS SUMMARY | 2024-05-05 15:30 | XMS_ITS | Referral Summary ---
Author Organization [facility] [address] Address [address] [place] [address] Care Team Providers Care [facility] Specialist Name Role Phone Heriberto Delgado MD Primary Care Provider + [phone] Allergies Active Allergy Reactions Criticality Noted Date Comments Acetaminophen Hives Medium Poison Lauren Extract Agitation,Anaphylaxi s,Anxiety,C hills,Fever,Itching,Rash High 01/14/2019 Pollen Extracts Cough,Eye irritation,Fatigue,Rhinitis,Sne ezing Low 01/14/2019 Tree And Shrub Pollen Medications oxybutynin (DITROPAN) 5 mg tablet Take 5 mg by mouth 3 (three) times a day Active sertraline (ZOLOFT) 50 mg tablet Take 50 mg by mouth daily Active cholecalciferol (VITAMIN D-3) 1,000 unit tablet Take 1 tablet po 5 days a week Active cyanocobalamin (Vitamin B-12) 1,000 mcg tabletIndication s:Prevention of Vitamin B12 Deficiency Take 1,000 mcg by mouth daily Active biotin 2,500 mcg capsule Take 7,500 mg by mouth daily Active aspirin 81 mg enteric coated tablet Take 1 tablet (81 mg total) by mouth daily 30 tablet 11 11/19/2018 Active Active Problems Problem Noted Date Diagnosed Date 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/21/2015 Immunizations Name Administration Dates Next Due Influenza, Trivalent, Preservative Free, Intramu scular 03/06/2014 Social History Tobacco Use Types Packs/Day Years Used Date Smoking Tobacco: Never Smokeless Tobacco: Never Alcohol Use Standard Drinks/Week Comments Yes 0 (1 standard drink = 0.6 oz pur e alcohol) 1 drink per day Comments Unknown Sex and Gender Information Value Date Recorded Sex Assigned at Not on file Legal Sex Female 1:41 AM 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[employer]ER Gender Identity Female 12/19/2018 8:20 AM CDT Sexual Orientation Straight 08/07/2023 11 :02 AM CDT Last Filed Vital Signs Vital Sign Reading Time Taken Comments Blood Pressure 120/86 01/14/2019 10:22 AM CDT Pulse 66 01/14/2019 10:22 AM CDT Temperature - - Respiratory Rate - - Oxygen Saturation 96% 01/14/2019 10:22 AM CDT Inhaled Oxygen Concentration - - Weight 78.5 kg (173 lb) 01/14/2019 10:22 AM CDT Height 162.6 cm (5' 4 ) 01/14/2019 10:22 AM CDT Body Mass Index 29.7 01/14/2019 10:22 AM CDT Plan of Treatment Not on file Insurance [facility] Care Teams [facility] Specialist Relationship Specialty Start Date End Date Heriberto Delgado MD PCP - General Internal Medicine 09/19/18
--- OUTSIDE RECORDS SUMMARY | 2024-05-05 15:30 | XMS_ITS | Encounter Summary ---
Author Organization [facility] Address [address] [place] [address] Care Team Providers Care Buzzle Buffer Name Role Phone Heriberto Delgado MD Primary Care Provider [phone] Reason for Visit * Diagnostic Imaging (Routine) - Closed Specialty Diagnoses / Procedures Referred By Contac t Referred To Contact Diagnoses Atypical chest pain CARRILLO (dyspnea on exertion) Procedures Transthoracic Echo Complete W Doppler/CF Uma Doll MD Phone: tel: fax: Referral ID Status Reason Start Date Expiration Date Visits Re quested Visits Authorized [id number] Closed 11/19/2018 05/30/2020 1 1 Encounter Details Date Type Department Care Team (Latest Contact Info) Description 12/17/2018 8:15 AM CDT Ancillary Procedure [facility] Medical [facility] Cardiology [address] [place] [id number] Atypical chest pain; CARRILLO (dyspnea on exertion) Social History Tobacco Use Types Packs/Day Years Used Date Smoking Tobacco: Never Smokeless Tobacco: Never Alcohol Use Standard Drinks/Week Comments Yes 0 (1 standard drink = 0.6 oz pur e alcohol) 1 drink per day Comments Unknown Sex and Gender Information Value Date Recorded Sex Assigned at Not on file 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 Gender Identity Female 12/19/2018 8:20 AM CDT Sexual Orientation Straight 08/07/2023 11 :02 AM CDT documented as of this encounter Plan of Treatment Not on file documented as of this encounter Procedures Procedure Name Priority Date/Time Associated Diagnosis Comments TRANSTHORACIC ECHO (TTE) COMPLETE W DOPPLER/CF W CONTRAST Routine 12/17/2018 8:59 AM CDT Atypical chest pain CARRILLO (dyspnea on exertion) documented in this encounter Results * TRANSTHORACIC ECHO (TTE) COMPLETE W DOPPLER/CF W CONTRAST (12/17/2018 8:59 AM CDT) Anatomical Region Laterality Modality Ultrasound 12/17/2018 7:59 AM CDT Narrative 12/17/2018 12:18 PM CDT [facility] [address], [place] [address] [address] [facility] [address] [facility] [address], [place] [address] P:[phone] P:[phone] Echocardiographic Report Patient Name: LEISA MUIR : 1945 Study Date: 12/17/2018 7:59:30 AM Gender: F Tech: Location: [place] Ref.Provider: ULISES Height(Cm): 163 BSA: 1.84 Weight(Kg): 78.93 Heart Rate: 59 BP: 135/75 Quality: Definity contrast agent used to enhance endocardial border definition Order Provider: UMA DOLL Procedures: Echocardiographic Report: Transthoracic echocardiogram with complete 2D, M-Mode, color Doppler examination and Definity contrast. Indications: Chest Pain, and Dyspnea on Exertion. Measurements: 2D/M Mode ?Doppler ? Measurement ?Value ?Normal Range ? Measurement ?Value ?Normal Range ? EF Mod ? 62 ?AV Mean PG ? 3 ?mmHg ? EF MM ?59 ? [ 55 - 70 ] % ?AV Peak Roni ?1.25 ? m/s ? LVIDd MM ? 5.25 ? [ 3.90 - 5.30 ] cm ? AV Peak PG ? 6 ?mmHg ? LVIDs MM ? 3.60 ? [ 2.30 - 3.90 ] cm ? AV VTI ? 0.29 ? cm ? LVPWd MM ? 0.98 ? [ 0.60 - 1.00 ] cm ? LVOT Peak Roni ?0.73 ? [ 0.70 - 1.10 ] m/s ? IVSd MM ?0.97 ? [ 0.60 - 0.90 ] cm ? LVOT VTI ? 0.17 ? cm ? LA Dimension MM ?4.13 ? [ 2.70 - 3.80 ] cm ? MV E Peak Roni ?0.42 ? [ 0.60 - 1.30 ] m/s ? AoR Diam MM ?3.52 ? [ 2.60 - 3.70 ] cm ? MV A Peak Roni ?0.78 ? [ 0.40 - 0.80 ] m/s ? LA Volume Index ?38.00 ?[ 16.00 - 28.00 ] cc/m2 ?MV Decel Time ?390 ?[ 150 - 200 ] msec ? ACS MM ? 1.88 ? cm ? PV Peak Roni ?0.63 ? [ 0.40 - 0.80 ] m/s ? TR Peak Roni ?2.45 ? [ 0.40 - 0.80 ] m/s ? TR Peak PG ? 24 ? mmHg ? RVSP ? 32.00 ?mmHg ? E' ? 0.09 ? E/E' ? 5 ? Findings: Interpretation Site: Exam was interpreted at [facility]. Left Ventricle: Definity contrast agent used to visually enhance endocardial wall motion and contractility. Lot Number: [id number]. Sigmoid hypertrophy of the septum. Normal left ventricular size. Normal global left ventricular systolic function. Impaired diastolic relaxation Grade I. Ejection fraction is visually estimated at 55 %. Right Ventricle: Normal right ventricular size. Normal right ventricular systolic function. Left Atrium: There is mild enlargement of left atrium. Right Atrium: The right atrium is normal in size. Atrial Septum: Normal atrial septum. Mitral Valve: Normal appearance of the mitral valve. No mitral valve regurgitation is seen. Aortic Valve: Normal appearance of the aortic valve. No evidence of hemodynamically significant aortic stenosis by Doppler. Mild aortic valve regurgitation. Tricuspid Valve: Normal appearance of the tricuspid valve. Estimated peak RVSP is 32 mmHg. Trivial regurgitation in the tricuspid valve. Pulmonic Valve: Normal appearance of the pulmonic valve. Trivial regurgitation in the pulmonic valve. Pericardium: Normal pericardium with no significant pericardial effusion. There is an anterior echo free space consistent with epicardial fat pad. Aorta: Sinus of Valsalva 3.6 cm. Sinotubular Junction 3.3 cm. Ascending Aorta 3.7 cm. IVC: Normal size and normal respiratory collapse consistent with normal right atrial pressure (<5 mmHg). Conclusions: Definity contrast agent used to visually enhance endocardial wall motion and contractility. Sigmoid hypertrophy of the septum. Normal left ventricular size. Normal global left ventricular systolic function. Impaired diastolic relaxation Grade I. Ejection fraction is visually estimated at 55 %. Mild enlargement of left atrium. Normal appearance of the mitral valve. No mitral valve regurgitation is seen. Normal appearance of the aortic valve. No evidence of hemodynamically significant aortic stenosis by Doppler. Mild aortic valve regurgitation. Estimated peak RVSP 32 mmHg. Trivial regurgitation in the tricuspid valve. Normal sinus rhythm. Electronically Signed By: Uma Doll MD, [facility] 2018-12-17 12:18:11 CDT Procedure Note Uma Doll MD - 12/17/2018 [facility] [address], [place] [address] [address] [facility] [address], [place] [address] P:[phone] P:[phone] Echocardiographic Report Patient Name: LEISA MUIRPatient ID: [id number] : [id number] Date: 12/17/2018 7:59:30 AM Gender: FAccession #: [id number] Tech: GMLocation: [place] Ref.Provider: ADAMSHeight(Cm): 163 BSA: 1.84Weight(Kg): 78.93 Heart Rate: 59BP: 135/75 Quality: Definity contrast agent used to enhance endocardial borderdefinitionOrder Provider: UMA DOLL Procedures: Echocardiographic Report: Transthoracic echocardiogram with complete 2D, M-Mode, color Dopplerexamination and Definity contrast. Indications: Chest Pain, and Dyspnea on Exertion. Measurements: 2D/M Mode Doppler Measurement Value Normal Range MeasurementValue Normal Range EF Mod 62 AV Mean PG 3mmHg EF MM 59 [ 55 - 70 ] % AV Peak Vel1.25 m/s LVIDd MM 5.25 [ 3.90 - 5.30 ] cm AV Peak PG 6mmHg LVIDs MM 3.60 [ 2.30 - 3.90 ] cm AV VTI0.29 cm LVPWd MM 0.98 [ 0.60 - 1.00 ] cm LVOT Peak Vel0.73 [ 0.70 - 1.10 ] m/s IVSd MM 0.97 [ 0.60 - 0.90 ] cm LVOT VTI0.17 cm LA Dimension MM 4.13 [ 2.70 - 3.80 ] cm MV E Peak Vel0.42 [ 0.60 - 1.30 ] m/s AoR Diam MM 3.52 [ 2.60 - 3.70 ] cm MV A Peak Vel0.78 [ 0.40 - 0.80 ] m/s LA Volume Index 38.00 [ 16.00 - 28.00 ] cc/m2 MV Decel [id number] [ 150 - 200 ] msec ACS MM 1.88 cm PV Peak Vel0.63 [ 0.40 - 0.80 ] m/s TR Peak Vel2.45 [ 0.40 - 0.80 ] m/s TR Peak PG 24mmHg RVSP32.00 mmHg E'0.09 E/E' 5 Findings: Interpretation Site: Exam was interpreted at [facility]. Left Ventricle: Definity contrast agent used to visually enhance endocardial wall motionand contractility. Lot Number: [id number]. Sigmoid hypertrophy of the septum.Normal left ventricular size. Normal global left ventricular systolic function.Impaired diastolic relaxation Grade I. Ejection fraction is visually estimated at 55 %. Right Ventricle: Normal right ventricular size. Normal right ventricular systolicfunction. Left Atrium: There is mild enlargement of left atrium. Right Atrium: The right atrium is normal in size. Atrial Septum: Normal atrial septum. Mitral Valve: Normal appearance of the mitral valve. No mitral valve regurgitation isseen. Aortic Valve: Normal appearance of the aortic valve. No evidence of hemodynamicallysignificant aortic stenosis by Doppler. Mild aortic valve regurgitation. Tricuspid Valve: Normal appearance of the tricuspid valve. Estimated peak RVSP is 32 mmHg.Trivial regurgitation in the tricuspid valve. Pulmonic Valve: Normal appearance of the pulmonic valve. Trivial regurgitation in thepulmonic valve. Pericardium: Normal pericardium with no significant pericardial effusion. There is ananterior echo free space consistent with epicardial fat pad. Aorta: Sinus of Valsalva 3.6 cm. Sinotubular Junction 3.3 cm. Ascending Aorta 3.7cm. IVC: Normal size and normal respiratory collapse consistent with normal rightatrial pressure (<5 mmHg). Conclusions: Definity contrast agent used to visually enhance endocardial wall motionand contractility. Sigmoid hypertrophy of the septum. Normal left ventricularsize. Normal global left ventricular systolic function. Impaired diastolic relaxationGrade I. Ejection fraction is visually estimated at 55 %. Mild enlargement of left atrium. Normal appearance of the mitral valve. No mitral valve regurgitation isseen. Normal appearance of the aortic valve. No evidence of hemodynamicallysignificant aortic stenosis by Doppler. Mild aortic valve regurgitation. Estimated peak RVSP 32 mmHg. Trivial regurgitation in the tricuspidvalve. Normal sinus rhythm. Electronically Signed By: Uma Doll MD, [facility] 2018-12-17 12:18:11 CDT Uma Doll MD CV ECHO PROCEDURES Final Result documented in this encounter Visit Diagnoses Diagnosis Atypical chest pain Other chest pain CARRILLO (dyspnea on exertion) Other dyspnea and respiratory abnormality documented in this encounter Administered Medications Inactive Administered Medications - up to 3 most recent administrations Medication Order MAR Action Action Date Dose Rate Site perflutren lipid (DEFINITY) 1.5 mL in sodium chloride 0.9% 10 mL syringe 1-10 mL, intravenous, Once in imaging, contrast, Starting on Sat12/17/18 at 0840, For 1 dose Given 12/17/2018 9:05 AM CDT 1 mL documented in this encounter Orders Medications Ordered That Patrick ht Not Have Been Administered Count Last Ordered Date First Ordered Date perflutren lipid (DEFINITY) 1.5 mL in sodium chloride 0.9% 10 mL syringe 1 12/17/2018 documented in this encounter Care Teams Buzzle Buffer Relationship Specialty Start Date End Date Heriberto Delgado MD PCP - General Internal Medicine 09/19/18 documented as of this encounter
--- OUTSIDE RECORDS SUMMARY | 2024-05-05 15:30 | XMS_ITS | Clinical Summary ---
Author Organization [facility] [address] Address [address] [place] [address] Care Team Providers Care Directional Driller Name Role Phone Heriberto Delgado MD Primary Care Provider [phone] Allergies Active Allergy Reactions Criticality Noted Date [...] Influenza, Trivalent, Preservative Free, Intramu scular 03/06/2014 Surgical History Surgery Date Site/Laterality Comments LA TONSILLECTOMY & ADENOIDEC LUIS <AGE 13 Tonsillectomy With Adenoidectomy - (Added by TW Conv) WRIST SURGERY Wrist Surgery - (Added by Conv) LA OCCLUSION FLP TUBE DEV VAG/SUPRAPUBIC APPR Oviductal Surgery Tubal Occlusion By Device - (Added by Conv) HYSTERECTOMY Total Hysterectomy - (Added by Conv) LIPOMA RESECTION Surgery Excision Lipoma - (Added by Conv) Medical History Medical History Date Comments Anesthesia of skin Leg numbness - (Added by Conv) Overactive bladder Overactive bl adder - (Added by Conv) 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 Low vitamin B12 level - (Add ed by Conv) Personal history of other me ntal and behavioral disorders History of depression - (Add ed by Conv) Anemia Rheumatic fever Anxiety Depression Arthritis Bladder infection Family History Medical History Relation Name Comments Hyperlipidemia Brother High choleste rol - (Added by Conv) Heart disease Father Arthritis Mother Family history of arthritis - (Added by Conv) Cancer Other 1 Family history of cancer - (Added by Conv) Hypertension Other 2 Family history of hypertension - (Added by Conv) Relation Name Status Comments Brother Father (Age 67) Mother Alive Other 1 Other 2 Social History Tobacco Use Types Packs/Day Years Used Date Smoking Tobacco: Never Smokeless Tobacco: Never Alcohol Use Standard Drinks/Week Comments Yes 0 (1 standard drink = 0.6 oz pur e alcohol) 1 drink per day Comments Unknown Sex and Gender Information Value Date Recorded Sex Assigned at Not on file 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
--- OUTSIDE RECORDS SUMMARY | 2024-05-05 15:30 | XMS_ITS | Encounter Summary ---
Author Organization 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
--- OUTSIDE RECORDS SUMMARY | 2024-05-05 15:30 | XMS_ITS | Encounter Summary ---
Author Organization [facility] Address [address] [place] [address] Care Team Providers Care Lens Shaper Grinder Name Role Phone Heriberto Delgado MD Primary Care Provider [phone] Encounter Details Date Type Department Care Team (Late st Contact Info) Description 01/12/2019 Orders Only [facility] [address] [place] [address] ProviderEnder MD [address] [place], [place] [id number] Social History Tobacco Use Types Packs/Day Years Used Date Smoking Tobacco: Never Smokeless Tobacco: Never Alcohol Use Standard Drinks/Week Comments Yes 0 (1 standard drink = 0.6 oz pur e alcohol) 1 drink per day Comments Unknown Sex and Gender Information Value Date Recorded Sex Assigned at Not on file 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 Gender Identity Female 12/19/2018 8:20 AM CDT Sexual Orientation Straight 08/07/2023 11 :02 AM CDT documented as of this encounter Plan of Treatment Not on file documented as of this encounter Procedures Procedure Name Priority Date/Time Associated Diagnosis Comments LIPID PANEL Routine 07/21/2018 10:18 AM CDT documented in this encounter Results * Lipid panel (07/21/2018 10:18 AM CDT) SCRIBED Cholesterol, Total 206 <200 [facility] SCRIB[facility] HDL 54 >40 [facility] S[facility] LDL 129 <100 [facility] S[facility] Triglycerides 123 <150 [facility] Blood specimen (specimen) us Historical Provider LAB BLOOD ORDERABLES Edit ed Result - Final [facility] documented in this encounter Visit Diagnoses Not on filedocumented in this encounter Care Teams Lens Shaper Grinder Relationship Specialty Start Date End Date Heriberto Delgado MD PCP - General Internal Medicine 09/19/18 documented as of this encounter
--- OUTSIDE RECORDS SUMMARY | 2024-05-05 15:30 | XMS_ITS | Encounter Summary ---
Author Organization [facility] Address [address] [facility] [address] [place] [id number] Care Team Providers Care Feed Research Aide Name Role Phone Heriberto Delgado MD Primary Care Provider [phone] Reason for Visit * Reason Comments Chest Pain Shortness of Breath 4-8 wk f/u on echo * Cardiology (Routine) - Closed Specialty Diagnoses / Procedures Referred By Contac t Referred To Contact Cardiology Diagnoses Chest pain, unspecified Heriberto Delgado MD Phone: tel: fax: [facility] [address] [place] [address] [place] [phone] Phone: tel: fax: Referral ID Status Reason Start Date Expiration Date Visits Re quested Visits Authorized [id number] Closed 09/30/2018 09/30/2019 12 12 Encounter Details Date Type Department Care Team (Late st Contact Info) Description 01/14/2019 10:15 AM CDT Office Visit [facility] [address] [place] [address] [place] [phone] Cy Rubin MD [facility] [address] Atypical chest pain (Primary Dx); Diastolic dysfunction; CARRILLO (dyspnea on exertion) Social History Tobacco Use Types Packs/Day Years Used Date Smoking Tobacco: Never Smokeless Tobacco: Never Alcohol Use Standard Drinks/Week Comments Yes 0 (1 standard drink = 0.6 oz pur e alcohol) 1 drink per day Comments Unknown Sex and Gender Information Value Date Recorded Sex Assigned at Not on file Legal Sex Female 1:41 AM [employer] Gender Identity Female 12/19/2018 8:20 AM CDT Sexual Orientation Straight 08/07/2023 11 :02 AM CDT documented as of this encounter Last Filed Vital Signs Vital Sign Reading [...] Mass Index 29.7 01/14/2019 10:22 AM CDT documented in this encounter Progress Notes * Cy Rubin MD - 01/14/2019 10:15 AM CDT [facility] 01/14/2019 CHIEF COMPLAINT Chief Complaint Patient presents with ??? Chest Pain ??? Shortness of Breath 4-8 wk f/u on echo Occasional Chest pressure since June 2018 HPI Leisa Boyd is a 73 y.o. female with DJD; no known prior cardiac history. 11/19/2018-initial evaluation: Patient has been referred for cardiovascular evaluation. She reportsthat she had an episode of lower substernal chest discomfort, nonexertional, last for few minutes in June- July 2018. Subsequently, she had a stress echocardiogram on 07/11/2018. Patient had poor exercise capacity, was able to walk for 3 minutes and 3 seconds on treadmill with exercise limiting dyspnea. No ischemic changes were seen on the EKG, and no wall motion abnormalities on echo. [place], she had about 4 additional episodes of chest discomfort, similar features. Her chest pain is nonexertional, last for just couple of minutes in the lower substernal area. She does not report chest pain with exertion. She has dyspnea on exertion, able to walk 2 blocks before she gets short of breath. She has occasional dizziness without syncope. No PND, orthopnea or lower extremity swelling. She denies any prior cardiac history including clinical SC, angina, heart failure on a arrhythmias. S he is a nonsmoker. 01/14/2019-patient is here for the follow-up visit after recent echocardiogram which showed preserved LV systolic function, grade 1 diastolic dysfunction. She reported 1 transient episode of nonexertional chest discomfort since last office visit. She denies chest pain with exertion. She is able to walk about 2 blocks before she gets short of breath. No other cardiovascular symptoms. MEDICAL HISTORY she has a past medical history of Anemia, Anesthesia of skin, Anxiety, Arthritis, Bladder infection, Deficiency of other specified B group vitamins, Depression, Overactive bladder, Personal history of other mental and behavioral disorders, and Rheumatic fever. she has a past surgical history that includes pr remove tonsils/adenoids,<13 y/o; Wrist surgery;pr occlude fallopian tube by device; Hysterectomy; and Lipoma resection. she Allergies Allergen Reactions ??? Poison Lauren Extract Agitation, Anaphylaxis, Anxiety, Chills, Fever, Itching and Rash ??? Acetaminophen Hives ??? Tree And Shrub Pollen ??? Pollen Extracts Cough, Eye irritation, Fatigue, Rhinitis and Sneezing Current Outpatient Medications Medication Sig Dispense Refill ??? aspirin 81 mg enteric coated tablet Take 1 tablet (81 mg total) by mouth daily 30 tablet 11 ??? biotin 2,500 mcg capsule Take 7,500 mg by mouth daily ??? cholecalciferol (VITAMIN D-3) 1,000 unit tablet Take 1 tablet po 5 days a week ??? cyanocobalamin (Vitamin B-12) 1,000 mcg tablet Take 1,000 mcg by mouth daily ??? oxybutynin (DITROPAN) 5 mg tablet Take 5 mg by mouth 3 (three) times a day ??? sertraline (ZOLOFT) 50 mg tablet Take 50 mg by mouth daily No current facility-administered medications for this visit. she family history includes Arthritis in her mother; Cancer in an other family member; Heart disease in her father; Hyperlipidemia in her brother; Hypertension in an other family member. she reports that she has never smoked. She has never used smokeless tobacco. She reports that she drinks alcohol. 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 Lives alone, her son lives in town. REVIEW OF SYSTEMS General ROS: negative for - Fever, chills, fatigue Psychological ROS: negative for - anxiety, depression Ophthalmic ROS: negative for - loss of vision ENT ROS: negative for - sore throat, epistaxis, headaches, nasal congestion Allergy and Immunology ROS: negative for - hives, postnasal drip or seasonal allergies Hematological and Lymphatic ROS: negative for - overt bleeding problems, bruising Respiratory ROS: negative for - cough, hemoptysis, wheezing Cardiovascular ROS: Occasional chest discomfort, nonexertional; dyspnea on exertion, able to walk 2blocks Gastrointestinal ROS: negative for - abdominal pain, blood in stools, hematemesis, nausea/vomiting Endocrine ROS: negative for - hot flashes, polydipsia/polyuria Genito-Urinary ROS: negative for - dysuria, hematuria Musculoskeletal ROS: negative for - joint pain, muscle pain Neurological ROS: negative for - gait disturbance, weakness Dermatological ROS: negative for pruritus, rash LABS AND OTHER DIAGNOSTIC TESTS REVIEWED Lab Results Component Value Date HGB 11.0 (L) 09/13/2014 HCT 34.5 (L) 09/13/2014 MCV 90.9 09/13/2014 No lab exists for component: LABALBU Lab Results Component Value Date HGB 11.0 (L) 09/13/2014 HCT 34.5 (L) 09/13/2014 MCV 90.9 09/13/2014 No results found for: CHOL No results found for: HDL No results found for: LDL] No results found for: TRIG Stress echocardiogram-normal exercise ECG, exercise time 3 minutes and 3 seconds, 4.6 Mets; episodes of supraventricular tachycardia during recovery, negative stress echocardiogram for ischemia by wall motion analysis. 07/11/2018 Dr Linton Lipid panel-total cholesterol 206, HDL 54, triglycerides 123, LDL 129. 07/21/2018 EKG-sinus rhythm, poor R-wave progression, nonspecific ST-T abnormalities. 11/19/2018 Echo- Definity contrast agent used to visually enhance [...] in the tricuspid valve. Normal sinus rhythm. 12/17/2018 PHYSICAL EXAM Vitals BP 120/86 (BP Location: Left arm, Patient Position: Sitting) Pulse 66 Ht 162.6 cm (5' 4 ) Wt 78.5 kg (173 lb) SpO2 96% BMI 29.70 kg/m?? General appearance - alert, no distress, oriented to time, place, person Mental status - affect appropriate to mood Eyes - extraocular eye movements intact, no pallor Ears - external ears appear normal, hearing grossly normal Nose - normal and patent, no discharge Mouth - mucous membranes moist, tongue normal Neck - supple, carotids upstroke normal bilaterally, no bruits, no JVD Chest - clear to auscultation Heart - normal rate, regular rhythm, normal S1, S2, no audible murmurs or gallops Abdomen - soft, nontender, nondistended, bowel sounds present Neurological - alert, oriented, normal speech, no gross motor deficits Musculoskeletal - no major deformity, no amputations Extremities - no pedal edema, no clubbing or cyanosis Skin - no rashes (on the exposed areas), no cyanosis ASSESSMENT Diagnoses and all orders for this visit: Atypical chest pain (Primary) Diastolic dysfunction CARRILLO (dyspnea on exertion) PLAN/RECOMMENDATIONS 73-year-old female with no known prior cardiac history. - occasional episodes of chest discomfort since June 2018, nonexertional in nature. Features atypical for ischemia. Previous EKG performed in the clinic showed sinus rhythm, poor R-wave progression, nonspecific ST-T abnormalities. Recent stress echocardiogram negative for ischemia, although patient had decreased exercise capacity. Echo shows normal LV systolic function, grade 1 diastolic dysfunction. - patient's symptoms are atypical, and she was reassured about recent cardiac testing. No further cardiac testing is indicated at this time, unless otherwise indicated in future. - diet and lifestyle modification for dyslipidemia. - Counseling was done for heart healthy diet, aerobic exercise at least 5 times a week, Medication compliance. More than 50% of the time was spent on counseling. - RTC 12 months or sooner if needed. Cy Rubin MD 01/14/19 Voice recognition software was used to complete this document, therefore, horticulture worker variances may occur. documented in this encounter Plan of Treatment Not on file documented as of this encounter Visit Diagnoses Diagnosis Atypical chest pain- Primary Other chest pain Diastolic dysfunction Unspecified heart disease CARRILLO (dyspnea on exertion) Other dyspnea and respiratory abnormality documented in this encounter Care Teams Feed Research Aide Relationship Specialty Start Date End Date Heriberto Delgado MD PCP - General Internal Medicine 09/19/18 documented as of this encounter
--- OUTSIDE RECORDS SUMMARY | 2024-05-05 15:31 | XMS_ITS | Encounter Summary ---
Author Organization [facility] Facility Care Team Providers Care Learning Design Specialist Name Role Phone Unavailable Primary Care Provider Unavailabl e Encounter Details Date Type Department Care Team (Latest Contact Info) Description 08/04/2014 - 08/04/2014 11:59 PM CDT Hospital Encounter [facility] Law Perez MD [address] [place] [address] Other specified pre-operative examination; Scoliosis (and kyphoscoliosis), idiopathic; Displacement of lumbar intervertebral disc without myelopathy; Lumbosacral spondylosis without myelopathy; Degeneration of lumbar or lumbosacral intervertebral disc; Spinal stenosis of lumbar region without neurogenic claudication; Pre-procedural laboratory examination; Pre-operative cardiovascular examination; Congenital spondylolisthesis; Obesity; Esophageal reflux; Family history of other cardiovascular diseases; Family history of ischemic heart disease; Encounter for long-term (current) use of other medications Social History Tobacco Use Types Packs/Day Years Used Date Smoking Tobacco: Never Assessed Comments Unknown Sex and Gender Information Value Date Recorded Sex Assigned at Not on file 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 Gender Identity Female 12/19/2018 8:20 AM CDT Sexual Orientation Straight 08/07/2023 11 :02 AM CDT documented as of this encounter Plan of Treatment Not on file documented as of this encounter Procedures Procedure Name Priority Date/Time Associated Diagnosis Comments CT LUMBAR SPINE WO CONTRAST Routine 08/04/2014 8:34 AM CDT DEXA AXIAL SKELETON BONE DENSITY 1 OR MORE SITES Routine 08/04/2014 8:00 AM CDT documented in this encounter Results * CT Lumbar Spine WO Contrast (08/04/2014 8:34 AM CDT) Anatomical Region Laterality Modality Spine N/A Computed Tomogra phy 08/04/2014 8:34 AM CDT Narrative 08/04/2014 11:15 AM CDT JUSTIN PORTER M.D. GERARD CARRIZALES M.D. FINAL REPORT The radiology attending physician has personally reviewed this study, and has reviewed and/or edited this written report and agrees with it. ACC# ??Date Time ??Exam [id number] Aug 04, 2014 08:34:[id number] Lumbar Spine w/o con EXAMINATION: ?? Lumbar spine CT with multiplanar reconstructions HISTORY: Scoliosis; preoperative evaluation TECHNIQUE: ?? Lumbar spine CT was performed in the axial plane without contrast. ??Sagittal and coronal reconstructions were performed by the technologist and sent to the workstation for review. Comparison: None available. FINDINGS: There is dextroscoliosis of the lumbar spine, centered L3-L4. There is mild left lateral listhesis of L1 on L2 and mild to moderate right lateral listhesis of L3 on L4. In addition, there is grade 1 anterolisthesis of L4 on L5. Vertebral bodies are of normal height without lytic or sclerotic lesions or compression fractures. There is severe intervertebral disc height loss at multiple lumbar levels with associated vacuum phenomenon. Sclerotic changes along the endplates of L2-L3 and L4-L5 are noted. ??There are scattered atherosclerotic calcifications of the abdominal aorta. ??Limited views of the soft tissues of the abdomen and pelvis are normal. On the axial images: T12-L1: The disc is normal. There is no facet arthropathy. There is no neural foraminal narrowing. There is nocentral canal stenosis. L1-L2: ?? Severe loss of intervertebral disc space with disc bulge. There is mild bilateral facet arthropathy. There is mild right and moderate left neural foraminal narrowing. There is mildcentral canal stenosis. L2-L3: ??Ligamentum flavum hypertrophy with disc bulge, with moderate canal stenosis There is moderate, worse on the left, bilateral facet arthropathy. There is moderate left neural foraminal narrowing. L3-L4: ?? Disc bulge with ligamentum flavum hypertrophy, resulting in severe canal stenosis. There is moderate bilateral facet arthropathy. There is moderate bilateral neural foraminal narrowing. L4-L5: ?? Disc bulge with severe central canal stenosis. There is severe bilateral facet arthropathy. There is severe bilateral neural foraminal narrowing. L5-S1: ?? Disc bulge There is severe bilateral facet arthropathy. There is moderate bilateral neural foraminal narrowing. There is nocentral canal stenosis. IMPRESSION: ?? Dextroscoliosis of the lumbar spine with multilevel degenerative changes of the lumbar spine, resulting in severe central canal stenosis at L3-L4 and L4-L5. Requested By: LAW FUNES M.D. Dictated By: ?? GERARD CARRIZALES M.D. ??on Aug ??2014 ??9:55A This document has been electronically signed by: JUSTIN PORTER M.D. on Aug ??2014 11:15A [id number] Procedure Note Provider, MD Ender - 08/23/2016 JUSTIN PORTER M.D. GERARD CARRIZALES M.D. FINAL REPORT The radiology attending physician has personally reviewed this study, and has reviewed and/or edited this written report and agrees with it. [facility]# Date Time Exam [id number] Aug 04, 2014 08:34:[id number] Lumbar Spine w/o con EXAMINATION: Lumbar spine CT with multiplanar reconstructions HISTORY: Scoliosis; preoperative evaluation TECHNIQUE: Lumbar spine CT was performed in the axial plane without contrast. Sagittal and coronal reconstructions were performed by the technologist and sent to the workstation for review. Comparison: None available. FINDINGS: There is dextroscoliosis of the lumbar spine, centered L3-L4. There is mild left lateral listhesis of L1 on L2 and mild to moderate right lateral listhesis of L3 on L4. In addition, there is grade 1 anterolisthesis of L4 on L5. Vertebral bodies are of normal height without lytic or sclerotic lesions or compression fractures. There is severe intervertebral disc height loss at multiple lumbar levels with associated vacuum phenomenon. Sclerotic changes along the endplates of L2-L3 and L4-L5 are noted. There are scattered atherosclerotic calcifications of the abdominal aorta. Limited views of the soft tissues of the abdomen and pelvis are normal. On the axial images: T12-L1: The disc is normal. There is no facet arthropathy. There is no neural foraminal narrowing. There is nocentral canal stenosis. L1-L2: Severe loss of intervertebral disc space with disc bulge. There is mild bilateral facet arthropathy. There is mild right and moderate left neural foraminal narrowing. There is mildcentral canal stenosis. L2-L3: Ligamentum flavum hypertrophy with disc bulge, with moderate canal stenosis There is moderate, worse on the left, bilateral facet arthropathy. There is moderate left neural foraminal narrowing. L3-L4: Disc bulge with ligamentum flavum hypertrophy, resulting in severe canal stenosis. There is moderate bilateral facet arthropathy. There is moderate bilateral neural foraminal narrowing. L4-L5: Disc bulge with severe central canal stenosis. There is severe bilateral facet arthropathy. There is severe bilateral neural foraminal narrowing. L5-S1: Disc bulge There is severe bilateral facet arthropathy. There is moderate bilateral neural foraminal narrowing. There is nocentral canal stenosis. IMPRESSION: Dextroscoliosis of the lumbar spine with multilevel degenerative changes of the lumbar spine, resulting in severe central canal stenosis at L3-L4 and L4-L5. Requested By: LAW FUNES M.D. Dictated By: GERARD CARRIZALES M.D. on Aug 04 2014 9:55A This document has been electronically signed by: JUSTIN PORTER M.D. on Aug 04 2014 11:15A [id number] us Historical Provider MD LOPEZ CT PROCEDURES Final R esult * Dexa Axial Skeleton Bone Density 1 or 2 Site (08/04/2014 8:00 AM CDT) Anatomical Region Laterality Modality Body N/A Radiographic Gloria ging 08/04/2014 8:00 AM CDT Narrative 08/04/2014 12:43 PM CDT JANUARY KENNEY M.D. GAVI ALVARADO M.D. FINAL REPORT The radiology attending physician has personally reviewed this study, and has reviewed and/or edited this written report and agrees with it. EXAMINATION: ?? BONE DENSITOMETRY OF THE SPINE AND HIP DATE OF STUDY: ??08/04/2014 HISTORY: ??69-year-old postmenopausal woman with loss of height. ??She is being treated with vitamin D supplementation. Patient had previously been on estrogen replacement therapy within the last year. ??Evaluate bone mineral density. Additional risk factors for fracture: Previous systemic glucocorticoid use. FINDINGS (SPINE): The bone mineral density of L1-L4 was assessed by dual-energy x-ray absorptiometry. The average bone mineral density within this region is 1.370 gm/sq-cm. This is 4.9 standard deviations above the mean of the average bone mineral density for age- and gender-matched subjects (the Z-score). It is 2.9 standard deviations above the mean peak bone mineral density in young adults (the T-score). FINDINGS (FEMORAL NECK): The bone mineral density of the left femoral neck was assessed by dual-energy x-ray absorptiometry. The average bone mineral density within the femoral neck region is 0.801 gm/sq-cm. This is 1.2 standard deviations above the mean of the average bone mineral density for age- and gender-matched subjects (the Z-score). It is 0.4 standard deviations below the mean peak bone mineral density in young adults (the T-score). FINDINGS (TOTAL HIP): The bone mineral density of the left hip was assessed by dual-energy x-ray absorptiometry. The average bone mineral density within the total hip region is 0.913 gm/sq-cm. This is 1.2 standard deviations above the mean of the average bone mineral density for age- and gender-matched subjects (the Z-score). It is 0.2 standard deviations below the mean peak bone mineral density in young adults (the T-score). SUMMARY OF CURRENT RESULTS: Region ? BMD ?T-score ??Z-score AP Spine (L1-L4) ? 1.370 ?2.9 ?4.9 Femoral Neck (Left) ?0.801 ?? -0.4 ?1.2 Total Hip (Left) ? 0.913 ?? -0.2 ?1.2 ?? IMPRESSION: ?? - 1. The bone mineral density of the lumbar spine is increased. 2. The bone mineral density of the left femoral neck is normal. 3. The bone mineral density of the left total hip is normal. 4. Overall, the above findings are normal by WHO criteria. 5. Calculation of fracture risk using the FRAX model is not appropriate in certain settings. ??It was not performed in this patient because the patient met the following condition(s): ??normal bone density. General comments regarding interpretation of bone density measurements: a) ??In children, premenopausal woman and males under age 50 not at increased risk for fractures only Z-scores, not T-scores are used to indicate risk. ??A Z-score above -2.0 is defined as within the expected range for age and Z-score at or less than -2.0 is below the expected range for age . ??A Z-score below the expected range for age in a patient with recent fractures and/or chronic corticosteroid treatment is consistent with a diagnosis of osteoporosis. b) ??In post menopausal women and males over 50, comparison of the measured bone mineral density with the average value in young normal subjects (the T-score ) has been found to be useful in assessing fracture risk. ??Fracture risk approximately doubles for each 1.0 standard deviation (SD) in individual's hip or spine bone mineral density is below the average value of young normal subjects. ??The World Health Organization (WHO) has defined T-scores of -1.0 to -2.5 as diagnostic of low bone mass (OSTEOPENIA), and T-scores of -2.5 or lower to be diagnostic of OSTEOPOROSIS, based on the site of lowest bone density. Note that there will be a change in reporting format and reference databases as patients move from the younger population (group a) to the older population (group b) The National Osteoporosis Foundation (www.nof.org) recommends adequate intake of calcium and vitamin D and regular weight-bearing exercise in all patients. ??They recommend pharmacologic treatment in postmenopausal women and men age 50 and older presenting with any of the followin) ? Osteoporosis, after appropriate evaluation to exclude secondary causes. 2) ? A hip or vertebral (clinical or radiographic) fracture, regardless of the bone density. 3) ? Low bone mass (Osteopenia) and one or more of: other prior fractures, secondary causes associated with high risk of fracture (such as glucocorticoid use or total immobilization), or computed high risk of fracture (10-yr probability of hip fracture >= 3% or a 10-yr probability of any major osteoporosis-related fracture >= 20% based on the [place].-adapted WHO algorithm), available at http://www.shef.ac.uk/FRAX). ?? Requested By: Dictated By: ?? GAVI ALVARADO M.D. ??on Aug ??2014 ??8:01A This document has been electronically signed by: JANUARY KENNEY M.D. on Aug ??2014 12:43P [id number] Procedure Note Provider, MD Ender - 08/23/2016 Catalina MCCLURE M.D. FINAL REPORT The radiology attending physician has personally reviewed this study, and has reviewed and/or edited this written report and agrees with it. EXAMINATION: BONE DENSITOMETRY OF THE SPINE AND HIP DATE OF STUDY: 08/04/2014 HISTORY: 69-year-old postmenopausal woman with loss of height. She is being treated with vitamin D supplementation. Patient had previously been on estrogen replacement therapy within the last year. Evaluate bone mineral density. Additional risk factors for fracture: Previous systemic glucocorticoid use. FINDINGS (SPINE): The bone mineral density of L1-L4 was assessed by dual-energy x-ray absorptiometry. The average bone mineral density within this region is 1.370 gm/sq-cm. This is 4.9 standard deviations above the mean of the average bone mineral density for age- and gender-matched subjects (the Z-score). It is 2.9 standard deviations above the mean peak bone mineral density in young adults (the T-score). FINDINGS (FEMORAL NECK): The bone mineral density of the left femoral neck was assessed by dual-energy x-ray absorptiometry. The average bone mineral density within the femoral neck region is 0.801 gm/sq-cm. This is 1.2 standard deviations above the mean of the average bone mineral density for age- and gender-matched subjects (the Z-score). It is 0.4 standard deviations below the mean peak bone mineral density in young adults (the T-score). FINDINGS (TOTAL HIP): The bone mineral density of the left hip was assessed by dual-energy x-ray absorptiometry. The average bone mineral density within the total hip region is 0.913 gm/sq-cm. This is 1.2 standard deviations above the mean of the average bone mineral density for age- and gender-matched subjects (the Z-score). It is 0.2 standard deviations below the mean peak bone mineral density in young adults (the T-score). SUMMARY OF CURRENT RESULTS: Region BMD T-score Z-score AP Spine (L1-L4) 1.370 2.9 4.9 Femoral Neck (Left) 0.801 -0.4 1.2 Total Hip (Left) 0.913 -0.2 1.2 IMPRESSION: - 1. The bone mineral density of the lumbar spine is increased. 2. The bone mineral density of the left femoral neck is normal. 3. The bone mineral density of the left total hip is normal. 4. Overall, the above findings are normal by WHO criteria. 5. Calculation of fracture risk using the FRAX model is not appropriate in certain settings. It was not performed in this patient because the patient met the following condition(s): normal bone density. General comments regarding interpretation of bone density measurements: a) In children, premenopausal woman and males under age 50 not at increased risk for fractures only Z-scores, not T-scores are used to indicate risk. A Z-score above -2.0 is defined as within the expected range for age and Z-score at or less than -2.0 is below the expected range for age . A Z-score below the expected range for age in a patient with recent fractures and/or chronic corticosteroid treatment is consistent with a diagnosis of osteoporosis. b) In post menopausal women and males over 50, comparison of the measured bone mineral density with the average value in young normal subjects (the T-score ) has been found to be useful in assessing fracture risk. Fracture risk approximately doubles for each 1.0 standard deviation (SD) in individual's hip or spine bone mineral density is below the average value of young normal subjects. The World Health Organization (WHO) has defined T-scores of -1.0 to -2.5 as diagnostic of low bone mass (OSTEOPENIA), and T-scores of -2.5 or lower to be diagnostic of OSTEOPOROSIS, based on the site of lowest bone density. Note that there will be a change in reporting format and reference databases as patients move from the younger population (group a) to the older population (group b) The National Osteoporosis Foundation (www.nof.org) recommends adequate intake of calcium and vitamin D and regular weight-bearing exercise in all patients. They recommend pharmacologic treatment in postmenopausal women and men age 50 and older presenting with any of the followin) Osteoporosis, after appropriate evaluation to exclude secondary causes. 2) A hip or vertebral (clinical or radiographic) fracture,regardless of the bone density. 3) Low bone mass (Osteopenia) and one or more of: other prior fractures, secondary causes associated with high risk of fracture (such as glucocorticoid use or total immobilization), or computed high risk of fracture (10-yr probability of hip fracture >= 3% or a 10-yr probability of any major osteoporosis-related fracture >= 20% based on the [place].-adapted WHO algorithm), available at http://www.shef.ac.uk/FRAX). Requested By: Dictated By: GAVI ALVARADO M.D. on Aug 04 2014 8:01A This document has been electronically signed by: JANUARY KENNEY M.D. on Aug 04 2014 12:43P [id number] Historical Provider MD LOPEZ DXA PROCEDURES Final Result documented in this encounter Visit Diagnoses Diagnosis Other specified pre-operative examination Scoliosis (and kyphoscoliosis), idiopathic Displacement of lumbar intervertebral disc without myelopathy Lumbosacral spondylosis without myelopathy Degeneration of lumbar or lumbosacral intervertebral disc Spinal stenosis of lumbar region without neurogenic claudication Pre-procedural laboratory examination Pre-operative cardiovascular examination Congenital spondylolisthesis Obesity Obesity, unspecified Esophageal reflux Family history of other cardiovascular diseases Family history of ischemic heart disease Encounter for long-term (current) use of other medications documented in this encounter
--- OUTSIDE RECORDS SUMMARY | 2024-05-05 15:31 | XMS_ITS | Encounter Summary ---
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 Hospital Encounter [facility] Law Perez MD [address] [place] [address] Scoliosis (and kyphoscoliosis), idiopathic; Degeneration of thoracic or thoracolumbar intervertebral disc; Degeneration of lumbar or lumbosacral intervertebral disc Social History Tobacco Use Types Packs/Day Years Used Date Smoking Tobacco: Never Assessed Comments Unknown Sex and Gender Information Value Date Recorded Sex Assigned at Not on file 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 Gender Identity Female 12/19/2018 8:20 AM CDT Sexual Orientation Straight 08/07/2023 11 :02 AM CDT documented as of this encounter Plan of Treatment Not on file documented as of this encounter Procedures Procedure Name Priority Date/Time Associated Diagnosis Comments XR SPINE (ENTIRE) NON WT 1V Routine 07/05/2014 4:21 PM MACHINE SHOP HELPER documented in this encounter Results * XR Spine (Entire) non wt 1 View (07/05/2014 4:21 PM MACHINE SHOP HELPER) Anatomical Region Laterality Modality Spine N/A Radiographic Gloria ging 07/05/2014 4:21 PM MACHINE SHOP HELPER Narrative 07/05/2014 4:34 PM MACHINE SHOP HELPER AMANDA GRANADOS M.D. FINAL REPORT ACC# ??Date Time ??Exam [id number] Jul 05, 2014 16:21:00 [id number] Spine TL ScoliosisStanding EXAMINATION: ?? 1. Thoracolumbar spine scoliosis standing HISTORY: Scoliosis FINDINGS: Two view examination of the thoracolumbar spine is correlated with lumbar spine radiographs from 06/21/2014. There is unchanged lumbar dextroscoliosis with apex at L3, measuring 18 degrees. Degenerative disc disease is moderate at all lumbar levels, worst along the concavity of the curvature. There is grade 1 degenerative anterolisthesis of L4. There is also moderate, multilevel thoracic degenerative disc disease. Truncal balance is normal. IMPRESSION: ?? 1. Unchanged degenerative lumbar dextroscoliosis with moderate, multilevel thoracolumbar degenerative disc disease and normal truncal balance. Requested By: LAW FUNES M.D. Dictated By: ?? AMANDA GRANADOS M.D. ??on Jul?2014 ??4:34P This document has been electronically signed by: AMANDA GRANADOS M.D. on Jul?2014 ??4:34P [id number] Procedure Note Provider, MD Ender - 08/23/2016 AMANDA GRANADOS M.D. FINAL REPORT ACC# Date Time Exam [id number] Jul 05, 2014 16:21:00 [id number] Spine TL ScoliosisStanding EXAMINATION: 1. Thoracolumbar spine scoliosis standing HISTORY: Scoliosis FINDINGS: Two view examination of the thoracolumbar spine is correlated with lumbar spine radiographs from 06/21/2014. There is unchanged lumbar dextroscoliosis with apex at L3, measuring 18 degrees. Degenerative disc disease is moderate at all lumbar levels, worst along the concavity of the curvature. There is grade 1 degenerative anterolisthesis of L4. There is also moderate, multilevel thoracic degenerative disc disease. Truncal balance is normal. IMPRESSION: 1. Unchanged degenerative lumbar dextroscoliosis with moderate, multilevel thoracolumbar degenerative disc disease and normal truncal balance. Requested By: LAW FUNES M.D. Dictated By: AMANDA GRANADOS M.D. on Jul 05 2014 4:34P This document has been electronically signed by: AMANDA GRANADOS M.D. on Jul 05 2014 4:34P [id number] Historical Provider MD LOPEZ XR PROCEDURES Final R esult documented in this encounter Visit Diagnoses Diagnosis Scoliosis (and kyphoscoliosis), idiopathic Degeneration of thoracic or thoracolumbar intervertebral disc Degeneration of lumbar or lumbosacral intervertebral disc documented in this encounter
--- OUTSIDE RECORDS SUMMARY | 2024-05-05 15:31 | XMS_ITS | Encounter Summary ---
Author Organization [facility] Facility Care Team Providers Care Applications Administrator Name Role Phone Unavailable Primary Care Provider Unavailabl e Encounter Details Date Type Department Care Team (Latest Contact Info) Description 08/31/2014 6:33 AM CDT - 09/04/2014 10:17 AM CDT Hospital Encounter [facility] Law Palomares MD [address] [place] [address] Spinal stenosis of lumbar region with neurogenic claudication; Hypotension; Scoliosis (and kyphoscoliosis), idiopathic; Urinary incontinence Social History Tobacco Use Types Packs/Day Years Used Date Smoking Tobacco: Never Assessed Comments Unknown Sex and Gender Information Value Date Recorded Sex Assigned at Not on file Legal Sex Female 1:41 AM DIRECTOR SPEECH Gender Identity Female 12/19/2018 8:20 AM CDT Sexual Orientation Straight 08/07/2023 11 :02 AM CDT documented as of this encounter Last Filed Vital Signs Vital Sign Reading Time Taken Comments Blood Pressure 138/83 09/04/2014 10:00 AM CDT Pulse 93 09/04/2014 10:00 AM CDT Temperature - - Respiratory Rate - - Oxygen Saturation 91% 09/04/2014 10:00 AM CDT Inhaled Oxygen Concentration - - Weight 88.5 kg (195 lb) 09/01/2014 3:39 AM CDT Height 157.5 cm (5' 2 ) 09/01/2014 3:39 AM CDT Body Mass Index 35.67 09/01/2014 3:39 AM CDT documented in this encounter Miscellaneous Notes * Op Note - ProviderEnder MD - 08/31/2014 12:00 AM CDT Patient: Leisa Muir Reg No: [id number] [facility] Care #: [id number] Admit Dt.: 08/31/2014 : 1945 Pt Type: 100 Room No: [id number] Attending: Law Palomares M.D. Surgeon: Law Palomares M.D. Dictating: Law Palomares M.D. Service Dt: 08/31/2014 OPERATIVE REPORT FIRST REGULATOR INSPECTOR: Celina Talavera M.D. ANESTHESIA: General endotracheal anesthesia. PREOPERATIVE DIAGNOSIS (ES): 1. Degenerative scoliosis. 2. Spinal stenosis. 3. Neurogenic claudication. POSTOPERATIVE DIAGNOSIS (ES): 1. Degenerative scoliosis. 2. Spinal stenosis. 3. Neurogenic claudication. NAME OF OPERATION: 1. L2-L5 posterior instrumented fusion arthrodesis. 2. L3-4 discectomy. 3. L3-4 interbody fusion using a 30 mm x 8 mm Titan titanium cage. 4. L4-5 discectomy. 5. L4-5 interbody fusion using a 26 mm x 8 mm Acuity titanium link bullet. 6. Harvesting of autograft from the same incision. 7. L3, L4, and partial L2 laminectomy and decompression facetectomy. 8. L3-4 unilateral left-sided Maradiaga procedure and facet resection. 9. L4-5 bilateral Maradiaga procedures, facetectomies and decompression. 10. Posterolateral decortication and fusion. INDICATIONS FOR PROCEDURE: This patient is a 69-year-old female with a history of progressive symptoms of low back pain that is degenerative and progressive leg weakness, who was found to have a significant spinal stenosis with a degenerative scoliosis. After a thorough discussion with the patient regarding risks and benefits, the patient was electively scheduled for surgery. DESCRIPTION OF PROCEDURE: The patient was positively identified and marked in the preoperative holding area. Consents were again reviewed with the patient and the patient's family. The patient was then brought back to the operating room where she underwent induction of general endotracheal anesthesia. After induction of general endotracheal anesthesia, the patient was positioned in the prone position, taking care to pad all appropriate pressure points. We then obtained pre-incision baseline motor and sensory-evoked potentials. Of note, these were monitored for the entire duration of the case and did not change for the entire duration of the case. We then marked out the level of L2 through L5. This area was then prepped and draped in the usual sterile fashion. A 10 blade scalpel was used to make an incision down to the level of the spinous process. Monopolar cautery was used to carry out a subperiosteal dissection, uncovering the transverse process of L2 through L5, taking care to preserve the rostral L1-2 facet complex. Self-retaining retractors were advanced. We then placed pedicle screw instrumentation at L2 initially using 6 x 45 mm screws bilaterally at L3, 6 x 15 mm on the left, 6 x 45 mm on the right; at L4, 7 x 15 mm on the left, 6 x 50 mm on the right; at L5, 7 x 15 mm on the left and 6.5 x 50 mm on the right. After all instrumentation was in place, we then performed laminectomy and trough decompression of L3-4 and also removed the cortical component of the L2 lamina extending across the disc space. This was further removed with pituitary forceps and 2-3 Kerrison punches. After a central decompression, we then placed our [place]aren[place] out the foramen underneath the pedicle of the L3 beneath the pars. With the use of the high-speed faye drill, the facet was completely removed performing a Maradiaga procedure on the left, disarticulating the inferior articulation with the high-speed faye drill, drilling the remainder of the pars. We then skeletonized the left L3 nerve root and exposed the L3-4 disc space. With the use of a nerve root retractor, we mobilized and protected the lateral dura and the exiting nerve root with a [place]-I. The disc was then prepped in the usual fashion with a 15 blade scalpel and advancing end plate scrapers. Ultimately, a 7 and 8 end plate scraper were utilized. Prepped the end plates with a rasp and box curettes before performing a complete discectomy, removing all fragments with pituitary forceps. After we had prepped the end plate, performed a complete discectomy, we then packed the anterior component with the patient's own harvested autograft mixed with small component of DDX. This was then tamped into place anterior in the disc space. We then placed a 30 mm x 8 mm Titan banana cage under fluoroscopic visualization to the anterior component of the disc space. After the Titan cage was placed, we then turned our attention to the L4-5 level. Again with the use of a [place], we identified the pars caudal to the L4 pedicle and skeletonized the exiting nerve root. 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 Thus, we performed a complete decompression, removing the entire facet complex on that side and following the root out laterally. This was performed with pituitary forceps, straight curette, and Kerrison punch as well as the high-speed faye drill. After skeletonizing the pedicles and completely decompressing the nerve root, we then performed a complete facetectomy, or Maradiaga procedure, on the right side, as well, removing the entire facet complex and the pars with the use of the high-speed faye drill, rongeurs, and Kerrison punch. At this point, we encountered the exiting nerve root which was completely decompressed. In similar fashion, we mobilized the lateral dura and the nerve root. Of note, the right-sided nerve root had significant compression, not only due to bony compression, but also significant soft tissue overgrowth with ligamentum flavum. After this was completely decompressed, it was protected with a nerve root retractor and [place]-I, and on the right side, the disc was prepped again in similar fashion with a 15 blade scalpel to incise the annulus, end plate scrapers, box curettes, and hockey stick rasps. After we completely removed the disc, I performed a complete discectomy. We trialed a 7 and 8 mm trial utilizing a 26 mm x 8 mm Acuity titanium link bullet that was packed with the patient's own harvested autograft and mixture of demineralized bone matrix. This was tamped into the anterior component of the disc space under fluoroscopic visualization. After the interbody fusion was complete at L4-5, coronal images demonstrated that we had achieved a nice reduction of the patient's scoliosis with the apex at L3 with a mild residual coronal imbalance. We then attempted a derotation utilizing the tank raines, stabilizing our L3 through L5 pedicles and providing an additional lordosis across the L2 screws. Of note, while reducing and giving the patient some additional lordosis, we did break out both bilateral L2 screws. This was noted and the rods were then removed as well as the previously placed L2 pedicle screws. We then up-sized our pedicle screws to longer bicortical screws; on the left, we used a more superior trajectory almost to the rostral disc space, aiming, again, to the superior component and achieving a bicortical fixation utilizing 6 x 55 mm screw at L2 and a 6 x 50 mm screw on the right at L2. After the bicortical fixation had been achieved and we had again good pedicle, or vertebral body, fixation, this was then locked into place with a 5.5 titanium tank and again with significant improvement in the patient's lumbar lordosis. Final AP and lateral flat plates were obtained, again to verify good positioning of all pedicle screws as well as verify our reduction of the patient's scoliosis and that appropriate lordosis had been achieved. We then decorticated the remaining exposed bone, including the transverse processes utilizing the patient's own harvested autograft mixed with 50 mL of cadaveric allograft, 20 mL of demineralized bone matrix, and 2.5 x 10 mL of Magnifuse. After decortication, this was then packed in for the posterolateral fusion. We then copiously irrigated with Bacitracin irrigation, obtained meticulous hemostasis with bipolar cautery and Surgiflow and closed over two Hemovac drains with interrupted 0 Vicryl, 2-0 Vicryl, 3-0 Vicryl, and interrupted vertical mattress nylon on the skin. Please note that I, Dr. Law Palomares, was present and participated in the entire portions of the procedure with the exception of the initial patient positioning and soft tissue exposure. Dr. Amol Muñoz was immediately available for this portion of the procedure. Electronically Signed By Law Palomares M.D. 09/17/2014 10:32 A Catalina Martin/morales #[id number] Editing MT: TD: 09/01/2014 10:58:00 cc: Law Palomares M.D. documented in this encounter Plan of Treatment Not on file documented as of this encounter Procedures Procedure Name Priority Date/Time Associated Diagnosis Comments DISCHARGE LABORATORY CUMULATIVE REPORT Routine 09/04/2014 12:00 AM CDT PLASMA BASIC METABOLIC PANEL Routine 09/03/2014 12:43 AM CDT BLOOD CELL COUNT (CBC) Routine 09/03/2014 12:43 AM CDT PLASMA BASIC METABOLIC PANEL Routine 09/02/2014 7:22 PM CDT CRITICAL RESULT CALL BACK Routine 09/02/2014 7:22 PM CDT PLASMA BASIC METABOLIC PANEL Routine 09/02/2014 8:48 AM CDT BLOOD CELL COUNT (CBC) Routine 09/02/2014 8:48 AM CDT XR SPINE LUMBAR 2 OR 3 VIEWS Routine 09/01/2014 8:32 AM CDT PLASMA BASIC METABOLIC PANEL Routine 08/31/2014 11:50 PM CDT PLASMA BASIC METABOLIC PANEL Routine 08/31/2014 10:30 PM CDT BLOOD CELL COUNT (CBC) Routine 08/31/2014 10:30 PM CDT XR SPINE LUMBAR 2 OR 3 VIEWS Routine 08/31/2014 8:49 PM CDT BLOOD GAS, POINT OF CARE, ARTERIAL Routine 08/31/2014 8:27 PM CDT BLOOD GAS, POINT OF CARE, ARTERIAL Routine 08/31/2014 7:34 PM CDT BLOOD GAS, POINT OF CARE, ARTERIAL Routine 08/31/2014 6:16 PM CDT CRITICAL RESULT CALL BACK Routine 08/31/2014 5:30 PM CDT OUTSIDE NEURO CT MR REFERENCE Routine 08/31/2014 5:56 AM CDT BLOOD ABO, RH, INDIRECT AB SCREEN Routine 08/31/2014 5:47 AM CDT documented in this encounter Results * Discharge Laboratory Cumulative Report (09/04/2014 12:00 AM CDT) 09/04/2014 Narrative HISTORICAL RESULTS - 09/04/2014 3:22 PM CDT ?[facility] ?Department of Laboratories ? [address] [facility] [address] ? [place] [id number] Patient Name: ??LEISA MUIR [facility] Rec Number: [id number] Fin Number: ?[id number] Date: ?1945 Sex/Age: ? Female 69 years Admit Date: ?08/31/2014 Discharge Date: 09/04/2014 Doctor: ?Law Palomares Facility: ?[facility] Location: ?[id number] Chart Printed: 09/04/2014 15:22 ?? * Abnormal ?? C Critical ?? f Footnote ?? ^ Corrected ?? L Low ?? H High ? i Interp Data ?? @ Reference Lab ?Chart Type:Cumulative ? SELECTED ELECTROLYTES ?Test: Sodium ? Plasma Potassium ? Reference: [135-145] ?[3.3-4.9] ? Units: mmol/L ? mmol/L 09/03/2014 ?? 00:43:00 ?? 140 ?4.0 09/02/2014 ?? 19:22:00 ?? 153 ??H^f ? 3.8 ??^f 09/02/2014 ?? 08:48:00 ?? 134 ??L ? 3.8 08/31/2014 ?? 23:50:00 ?? 142 ?4.2 08/31/2014 ?? 22:30:00 ?? See Comment ??^f ??See Comment ??^f 09/02/2014 19:22:00 ??Sodium: Corrected from 153 on 09/03/2014 10:18:11 by KGW 09/02/2014 19:22:00 ??Sodium: One or more unlikely results, were obtained from this sample and the analysis was verified. ??If these and other concurrent results from this sample should be deleted due to IV contamination or improper collection, the physician should contact the laboratory. 08/31/2014 22:30:00 ??Sodium: Corrected from 149 on 08/31/2014 23:57:05 by THP 08/31/2014 22:30:00 ??Sodium: Credited; unlikely result or concurrent to an unlikely result; deleted at the request of Clara Le RN on 08/31/2014 23:45:21 CDT by [facility]. 09/02/2014 19:22:00 ??Plasma Potassium: Corrected from 3.8 on 09/03/2014 10:18:11 by KGW 09/02/2014 19:22:00 ??Plasma Potassium: One or more unlikely results, were obtained from this sample and the analysis was verified. ??If these and other concurrent results from this sample should be deleted due to IV contamination or improper collection, the physician should contact the laboratory. 08/31/2014 22:30:00 ??Plasma Potassium: Corrected from 2.4 on 08/31/2014 23:57:05 by THP 08/31/2014 22:30:00 ??Plasma Potassium: Credited; unlikely result or concurrent to an unlikely result; deleted at the request of Clara Le RN on 08/31/2014 23:45:21 CDT by thp. ? SELECTED ELECTROLYTES ?Test: Chloride ? Total CO2 ? Reference: [97-110] ? [22-32] ? Units: mmol/L ? mmol/L 09/03/2014 ?? 00:43:00 ?? 104 ?27 09/02/2014 ?? 19:22:00 ?? 86 ??L^f ?20 ??L^f 09/02/2014 ?? 08:48:00 ?? 103 ?23 08/31/2014 ?? 23:50:00 ?? 112 ??H ? 24 08/31/2014 ?? 22:30:00 ?? See Comment ??^f ??See Comment ??^f 09/02/2014 19:22:00 ??Chloride: Corrected from 86 on 09/03/2014 10:18:11 by KGW 09/02/2014 19:22:00 ??Chloride: One or more unlikely results, were obtained from this sample and the analysis was verified. ??If these and other concurrent results from this sample should be deleted due to IV contamination or improper collection, the physician should contact the laboratory. 08/31/2014 22:30:00 ??Chloride: Corrected from 126 on 08/31/2014 23:57:05 by THP 08/31/2014 22:30:00 ??Chloride: Credited; unlikely result or concurrent to an unlikely result; deleted at the request of Clara Le RN on 08/31/2014 23:45:21 CDT by thp. 09/02/2014 19:22:00 ??Total CO2: Corrected from 20 on 09/03/2014 10:18:11 by KGW 09/02/2014 19:22:00 ??Total CO2: One or more unlikely results, were obtained from this sample and the analysis was verified. ??If these and other concurrent results from this sample should be deleted due to IV contamination or improper collection, the physician should contact the laboratory. 08/31/2014 22:30:00 ??Total CO2: Corrected from 16 on 08/31/2014 23:57:05 by THP 08/31/2014 22:30:00 ??Total CO2: Credited; unlikely result or concurrent to an unlikely result; deleted at the request of Clara Le RN on 08/31/2014 23:45:21 CDT by thp. ?Test: Anion Gap ? Reference: [0-16] ? Units: mmol/L 09/03/2014 ?? 00:43:00 ?? 9 09/02/2014 ?? 19:22:00 ?? 47 ??C^f 09/02/2014 ?? 08:48:00 ?? 8 08/31/2014 ?? 23:50:00 ?? 6 08/31/2014 ?? 22:30:00 ?? See Comment ??^f 09/02/2014 19:22:00 ??Anion Gap: Corrected from 47 on 09/03/2014 10:18:11 by KGW 09/02/2014 19:22:00 ??Anion Gap: One or more unlikely results, were obtained from this sample and the analysis was verified. ??If these and other concurrent results from this sample should be deleted due to IV contamination or improper collection, the physician should contact the laboratory. 08/31/2014 22:30:00 ??Anion Gap: Corrected from 7 on 08/31/2014 23:57:05 by THP ? SELECTED ELECTROLYTES 08/31/2014 22:30:00 ??Anion Gap: Credited; unlikely result or concurrent to an unlikely result; deleted at the request of Clara Le RN on 08/31/2014 23:45:21 CDT by thp. ? STANDARD BLOOD CHEMISTRY ?Test: BUN ?Creatinine ? Reference: [8-25] ? [0.60-1.10] ? Units: mg/dL ?mg/dL 09/03/2014 ?? 00:43:00 ?? 6 ??L ? 0.70 09/02/2014 ?? 19:22:00 ?? 4 ??L^f ? 0.62 ??^f 09/02/2014 ?? 08:48:00 ?? 5 ??L ? 0.59 ??L 08/31/2014 ?? 23:50:00 ?? 10 ? 0.75 08/31/2014 ?? 22:30:00 ?? See Comment ??^f ??See Comment ??^f 09/02/2014 19:22:00 ??BUN: Corrected from 4 on 09/03/2014 10:18:11 by SWETHA 09/02/2014 19:22:00 ??BUN: One or more unlikely results, were obtained from this sample and the analysis was verified. ??If these and other concurrent results from this sample should be deleted due to IV contamination or improper collection, the physician should contact the laboratory. 08/31/2014 22:30:00 ??BUN: Corrected from 7 on 08/31/2014 23:57:05 by THP 08/31/2014 22:30:00 ??BUN: Credited; unlikely result or concurrent to an unlikely result; deleted at the request of Clara Le RN on 08/31/2014 23:45:21 CDT by [facility]. 09/02/2014 19:22:00 ??Creatinine: Corrected from 0.62 on 09/03/2014 10:18:11 by KGW 09/02/2014 19:22:00 ??Creatinine: One or more unlikely results, were obtained from this sample and the analysis was verified. ??If these and other concurrent results from this sample should be deleted due to IV contamination or improper collection, the physician should contact the laboratory. 08/31/2014 22:30:00 ??Creatinine: Corrected from 0.47 on 08/31/2014 23:57:05 by [facility] 08/31/2014 22:30:00 ??Creatinine: Credited; unlikely result or concurrent to an unlikely result; deleted at the request of Clara Le RN on 08/31/2014 23:45:21 CDT by [facility]. ?Test: Glucose ?Total Calcium ? Reference: [70-199] ? [8.6-10.3] ? Units: mg/dL ?mg/dL 09/03/2014 ?? 00:43:00 ?? 118 ?8.6 09/02/2014 ?? 19:22:00 ?? 96 ??^f ? 7.0 ??L^f 09/02/2014 ?? 08:48:00 ?? 121 ?8.3 ??L 08/31/2014 ?? 23:50:00 ?? 136 ?7.5 ??L 08/31/2014 ?? 22:30:00 ?? See Comment ??^f ??See Comment ??^f 09/02/2014 19:22:00 ??Glucose: Corrected from 96 on 09/03/2014 10:18:11 by KGW ? STANDARD BLOOD CHEMISTRY 09/02/2014 19:22:00 ??Glucose: One or more unlikely results, were obtained from this sample and the analysis was verified. ??If these and other concurrent results from this sample should be deleted due to IV contamination or improper collection, the physician should contact the laboratory. 08/31/2014 22:30:00 ??Glucose: Corrected from 85 on 08/31/2014 23:57:05 by THP 08/31/2014 22:30:00 ??Glucose: Credited; unlikely result or concurrent to an unlikely result; deleted at the request of Clara Le RN on 08/31/2014 23:45:21 CDT by thp. 09/02/2014 19:22:00 ??Total Calcium: Corrected from 7.0 on 09/03/2014 10:18:11 by KGW 09/02/2014 19:22:00 ??Total Calcium: One or more unlikely results, were obtained from this sample and the analysis was verified. ??If these and other concurrent results from this sample should be deleted due to IV contamination or improper collection, the physician should contact the laboratory. 08/31/2014 22:30:00 ??Total Calcium: Corrected from <5.0 on 08/31/2014 23:57:05 by THP 08/31/2014 22:30:00 ??Total Calcium: Credited; unlikely result or concurrent to an unlikely result; deleted at the request of Clara Le RN on 08/31/2014 23:45:21 CDT by thp. ? COMPLETE BLOOD COUNT ?Test: WBC ?RBC ?Hgb ? Reference: [3.8-9.8] ??[3.90-5.00] ??[12.1-15.1] ? Units: K/cumm ? M/cumm ? g/dL 09/03/2014 ?? 00:43:00 ?? 8.7 ?3.45 ??L ?10.4 ??L 09/02/2014 ?? 08:48:00 ?? 11.0 ??H ?3.67 ??L ?10.8 ??L 08/31/2014 ?? 22:30:31 ?? 8.4 ?2.81 ??L ?8.3 ??L ?Test: Hct ?Platelet Ct ??MCV ? Reference: [36.1-44.3] ??[140-440] ?[80.0-97.6] ? Units: % ?K/cumm ? fL 09/03/2014 ?? 00:43:00 ?? 31.0 ??L ?147 ?90.0 09/02/2014 ?? 08:48:00 ?? 32.7 ??L ?161 ?89.0 08/31/2014 ?? 22:30:31 ?? 25.3 ??L ?125 ??L ? 90.2 ?Test: MCH ?MCHC ? RDW ? Reference: [26.7-33.7] ??[32.7-35.5] ??[11.8-14.6] ? Units: pg ? g/dL ? % 09/03/2014 ?? 00:43:00 ?? 30.0 ? 33.4 ? 13.6 09/02/2014 ?? 08:48:00 ?? 29.5 ? 33.1 ? 13.5 08/31/2014 ?? 22:30:31 ?? 29.7 ? 32.9 ? 13.6 ?Test: MPV ? Reference: [6.8-10.4] ? Units: fL 09/03/2014 ?? 00:43:00 ?? 7.9 ? COMPLETE BLOOD COUNT ?Test: MPV ? Reference: [6.8-10.4] ? Units: fL 09/02/2014 ?? 08:48:00 ?? 8.0 08/31/2014 ?? 22:30:31 ?? 7.5 ? AUTOMATED WHITE CELL DIFFERENTIAL ?Test: Neut Pct Auto ??Lymph Pct Auto ??[place] Pct Auto ? Reference: [38.7-74.5] ?[20.0-54.3] ? [4.3-13.5] ? Units: % ?% ? % 09/03/2014 ?? 00:43:00 ?? 68.2 ? 17.9 ??L ? 10.7 09/02/2014 ?? 08:48:00 ?? 78.1 ??H ?12.3 ??L ? 8.4 08/31/2014 ?? 22:30:31 ?? 78.5 ??H ?11.4 ??L ? 8.7 ?Test: Eos Pct Auto ??Baso Pct Auto ??Neut Abs Auto ? Reference: [0.0-6.0] ? [0.0-3.0] ?[1.8-6.6] ? Units: % ? % ?K/cumm 09/03/2014 ?? 00:43:00 ?? 2.8 ? 0.4 ?6.0 09/02/2014 ?? 08:48:00 ?? 1.1 ? 0.1 ?8.6 ??H 08/31/2014 ?? 22:30:31 ?? 1.3 ? 0.1 ?6.6 ?Test: Lymph Abs Auto ??[place] Abs Auto ??Eos Abs Auto ? Reference: [1.2-3.3] ? [0.2-1.2] ?[0.0-0.5] ? Units: K/cumm ?K/cumm ? K/cumm 09/03/2014 ?? 00:43:00 ?? 1.6 ? 0.9 ?0.2 09/02/2014 ?? 08:48:00 ?? 1.3 ? 0.9 ?0.1 08/31/2014 ?? 22:30:31 ?? 1.0 ??L ?0.7 ?0.1 ?Test: Baso Abs Auto ? Reference: [0.0-0.2] ? Units: K/cumm 09/03/2014 ?? 00:43:00 ?? 0.0 09/02/2014 ?? 08:48:00 ?? 0.0 08/31/2014 ?? 22:30:31 ?? 0.0 ? TRANSFUSION MEDICINE ?Test: Indirect Lila. ??ABO/Rh Pat Interp ? Reference: ? Units: 08/31/2014 ?? 05:47:00 ?? Negative ?A Positive ?POINT OF CARE TESTS ? Chemistry ?Test: pH Art gPOC ??pCO2 Art gPOC ??pO2 Art gPOC ? Reference: [7.35-7.45] ??[35-45] ?[80-105] ? Units: ?mmHg ? mmHg 08/31/2014 ?? 20:27:00 ?? 7.32 ??L ?46 ??H ?41 ??L 08/31/2014 ?? 19:34:00 ?? 7.33 ??L ?41 ? 46 ??L 08/31/2014 ?? 18:16:00 ?? 7.38 ? 41 ? 91 ?Test: Bicarb Art gPOC ??TCO2 Art gPOC ??O2 Sat Art gPOC ? Reference: [20-30] ?[22-32] ?[95-98] ? Units: mmol/L ? mmol/L ? % 08/31/2014 ?? 20:27:00 ?? 24 ? 25 ? 71 ??L 08/31/2014 ?? 19:34:00 ?? 22 ? 23 ? 78 ??L 08/31/2014 ?? 18:16:00 ?? 24 ? 26 ? 97 ?Test: Base Ex Art gPOC ??Sodium gPOC ??Potass gPOC ? Reference: ? [135-145] ?[3.3-4.9] ? Units: mmol/L ?mmol/L ? mmol/L 08/31/2014 ?? 20:27:00 ?? -2.4 ?142 ?4.1 08/31/2014 ?? 19:34:00 ?? -4.0 ?142 ?3.2 ??L 08/31/2014 ?? 18:16:00 ?? -0.8 ?142 ?3.5 ?Test: Ca Ion gPOC ??Gluc gPOC ??HCT gPOC ? Reference: [4.50-5.10] ??[70-199] ?? [36.1-44.3] ? Units: mg/dL ?mg/dL ?% 08/31/2014 ?? 20:27:00 ?? 4.37 ??L ?99 ? 31.0 ??L 08/31/2014 ?? 19:34:00 ?? 4.25 ??L ?83 ? 24.0 ??L 08/31/2014 ?? 18:16:00 ?? 4.77 ? 84 ? 25.0 ??L ? SUMMARY OF CRITICAL CALLBACKS ?Test: Called By ??Called/Read Back ??Credentials 09/02/2014 ??19:22:00 ??See Below ??See Below ? RN 08/31/2014 ??22:30:00 ??See Below ??See Below ? RN 09/02/2014 ??19:22:00 ??Called By ? rls 08/31/2014 ??22:30:00 ??Called By ? thp 09/02/2014 ??19:22:00 ??Called/Read Back ? davey jenny 08/31/2014 ??22:30:00 ??Called/Read Back ? Clara Le ?Test: Date Notified ??TestName ?? Time Notified 09/02/2014 ??19:22:00 ??09/02/2014 ? See Below ??21:09 08/31/2014 ??22:30:00 ??08/31/2014 ? See Below ??23:48 ? SUMMARY OF CRITICAL CALLBACKS 09/02/2014 ??19:22:00 ??TestName ? anion gap 08/31/2014 ??22:30:00 ??TestName ? Potassium, Calcium ? CANCELLED TESTS Date ?Time ?Test ?Cancel Reason 08/31/2014 ??22:30:00 ??Critical Result Callback ?Duplicate orders ? Chemistry 09/01/2014 ??16:02:00 ??Basic Met Plas ?Lab operations cancel 09/01/2014 ??16:15:00 ??Basic Met Plas ?IV contamination us Historical Provider LAB BLOOD ORDERABLES Linda l Result Performing Organization Address [facility] de Phone Number HISTORICAL RESULTS * (ABNORMAL) Plasma basic metabolic panel (09/03/2014 12:43 AM CDT) Pathologist [facility] Sodium 140 135 - 145 mmol/L HISTORICAL RESULTS K, pl 4.0 3.3 - 4.9 mmol/L HISTORICAL RESULTS Chloride 104 97 - 110 mmol/L HISTORICAL RESULTS CO2 27 22 - 32 mmol/L HISTORICAL RESULTS A. gap 9 0 - 16 mmol/L HISTORICAL RESULTS Glucose 118 70 - 199 mg/dl HISTORICAL RESULTS BUN 6(L) 8 - 25 mg/dl HISTORICAL RESULTS Creatinine 0.70 0.60 - 1.10 mg/dl HISTORICAL RESULTS Calcium 8.6 8.6 - 10.3 mg/dl HISTORICAL RESULTS Plasma 09/03/2014 12:4 3 AM CDT Chente Eldridge MD LAB BLOOD ORDERABLES Final Res ult Performing Organization Address [facility] de Phone Number HISTORICAL RESULTS * (ABNORMAL) Blood cell count (CBC) (09/03/2014 12:43 AM CDT) WBC 8.7 3.8 - 9.8 K/cumm HISTORICAL RESULTS RBC 3.45(L) 3.90 - 5.00 M/cumm HISTORICAL RESULTS Hgb 10.4(L) 12.1 - 15.1 g/dl HISTORICAL RESULTS Hct 31.0(L) 36.1 - 44.3 % HISTORICAL RESULTS MCV 90.0 80.0 - 97.6 fl HISTORICAL RESULTS MCH 30.0 26.7 - 33.7 pg HISTORICAL RESULTS MCHC 33.4 32.7 - 35.5 g/dl HISTORICAL RESULTS Rdw 13.6 11.8 - 14.6 % HISTORICAL RESULTS Platelets 147 140 - 440 K/cumm HISTORICAL RESULTS MPV 7.9 6.8 - 10.4 fl HISTORICAL RESULTS Neutrophils, abs 6.0 1.8 - 6.6 K/cumm HISTORICAL RESULTS Lymphocytes, abs 1.6 1.2 - 3.3 K/cumm HISTORICAL RESULTS Monocytes, absolute 0.9 0.2 - 1.2 K/cumm HISTORICAL RESULTS Eosinophils, abs 0.2 0.0 - 0.5 K/cumm HISTORICAL RESULTS Basophils, abs 0.0 0.0 - 0.2 K/cumm HISTORICAL RESULTS Neutrophils 68.2 38.7 - 74.5 % HISTORICAL RESULTS Lymphocytes 17.9(L) 20.0 - 54.3 % HISTORICAL RESULTS Monos 10.7 4.3 - 13.5 % HISTORICAL RESULTS Eosinophils 2.8 0.0 - 6.0 % HISTORICAL RESULTS Basophils 0.4 0.0 - 3.0 % HISTORICAL RESULTS Blood specimen (specimen) 09/03/2014 12:43 AM CDT Sylvia Wright [employer] LAB BLOOD ORDERABLES F inal Result HISTORICAL RESULTS * (ABNORMAL) Plasma basic metabolic panel (09/02/2014 7:22 PM CDT) Sodium 153(H) 135 - 145 mmol/L HISTORICAL RESULTS Comment: One or more unlikely results, were obtained from this sample and the analysis was verified. ??If these and other concurrent results from this sample should be deleted due to IV contamination or improper collection, the physician should contact the laboratory. K, pl 3.8 3.3 - 4.9 mmol/L HISTORICAL RESULTS Comment: One or more unlikely results, were obtained from this sample and the analysis was verified. ??If these and other concurrent results from this sample should be deleted due to IV contamination or improper collection, the physician should contact the laboratory. Chloride 86(L) 97 - 110 mmol/L HISTORICAL RESULTS Comment: One or more unlikely results, were obtained from this sample and the analysis was verified. ??If these and other concurrent results from this sample should be deleted due to IV contamination or improper collection, the physician should contact the laboratory. CO2 20(L) 22 - 32 mmol/L HISTORICAL RESULTS Comment: One or more unlikely results, were obtained from this sample and the analysis was verified. ??If these and other concurrent results from this sample should be deleted due to IV contamination or improper collection, the physician should contact the laboratory. A. gap 47(C) 0 - 16 mmol/L HISTORICAL RESULTS Comment: One or more unlikely results, were obtained from this sample and the analysis was verified. ??If these and other concurrent results from this sample should be deleted due to IV contamination or improper collection, the physician should contact the laboratory. Glucose 96 70 - 199 mg/dl HISTORICAL RESULTS Comment: One or more unlikely results, were obtained from this sample and the analysis was verified. ??If these and other concurrent results from this sample should be deleted due to IV contamination or improper collection, the physician should contact the laboratory. BUN 4(L) 8 - 25 mg/dl HISTORICAL RESULTS Comment: One or more unlikely results, were obtained from this sample and the analysis was verified. ??If these and other concurrent results from this sample should be deleted due to IV contamination or improper collection, the physician should contact the laboratory. Creatinine 0.62 0.60 - 1.10 mg/dl HISTORICAL RESULTS Comment: One or more unlikely results, were obtained from this sample and the analysis was verified. ??If these and other concurrent results from this sample should be deleted due to IV contamination or improper collection, the physician should contact the laboratory. Calcium 7.0(L) 8.6 - 10.3 mg/dl HISTORICAL RESULTS Comment: One or more unlikely results, were obtained from this sample and the analysis was verified. ??If these and other concurrent results from this sample should be deleted due to IV contamination or improper collection, the physician should contact the laboratory. Plasma 09/02/2014 7:22 PM CDT Maykel Talavera MD LAB BLOOD ORDERABLES Final Result HISTORICAL RESULTS * Critical result call back (09/02/2014 7:22 PM CDT) Date notified 09/02/2014 HISTO RICAL RESULTS Time notified 21:09 HISTOR ICAL RESULTS Test name anion gap HISTORICAL RESULTS Called to davey ROJASICA L RESULTS Credentials RN HISTORIC AL RESULTS Called by areli HISTORICAL RESULTS No specimen 09/02/2014 7:22 PM CDT Maykel Talavera MD LAB BLOOD ORDERABLES Final Result Performing Organization Address [facility] Co de Phone Number HISTORICAL RESULTS * (ABNORMAL) Plasma basic metabolic panel (09/02/2014 8:48 AM CDT) Sodium 134(L) 135 - 145 mmol/L HISTORICAL RESULTS K, pl 3.8 3.3 - 4.9 mmol/L HISTORICAL RESULTS Chloride 103 97 - 110 mmol/L HISTORICAL RESULTS CO2 23 22 - 32 mmol/L HISTORICAL RESULTS A. gap 8 0 - 16 mmol/L HISTORICAL RESULTS Glucose 121 70 - 199 mg/dl HISTORICAL RESULTS BUN 5(L) 8 - 25 mg/dl HISTORICAL RESULTS Creatinine 0.59(L) 0.60 - 1.10 mg/dl HISTORICAL RESULTS Calcium 8.3(L) 8.6 - 10.3 mg/dl HISTORICAL RESULTS Plasma 09/02/2014 8:48 AM CDT Elena Riojas NP LAB BLOOD ORDERABLES Final Result Performing Organization Address [facility] de Phone Number HISTORICAL RESULTS * (ABNORMAL) Blood cell count (CBC) (09/02/2014 8:48 AM CDT) WBC 11.0(H) 3.8 - 9.8 K/cumm HISTORICAL RESULTS RBC 3.67(L) 3.90 - 5.00 M/cumm HISTORICAL RESULTS Hgb 10.8(L) 12.1 - 15.1 g/dl HISTORICAL RESULTS Hct 32.7(L) 36.1 - 44.3 % HISTORICAL RESULTS MCV 89.0 80.0 - 97.6 fl HISTORICAL RESULTS MCH 29.5 26.7 - 33.7 pg HISTORICAL RESULTS MCHC 33.1 32.7 - 35.5 g/dl HISTORICAL RESULTS Rdw 13.5 11.8 - 14.6 % HISTORICAL RESULTS Platelets 161 140 - 440 K/cumm HISTORICAL RESULTS MPV 8.0 6.8 - 10.4 fl HISTORICAL RESULTS Neutrophils, abs 8.6(H) 1.8 - 6.6 K/cumm HISTORICAL RESULTS Lymphocytes, abs 1.3 1.2 - 3.3 K/cumm HISTORICAL RESULTS Monocytes, absolute 0.9 0.2 - 1.2 K/cumm HISTORICAL RESULTS Eosinophils, abs 0.1 0.0 - 0.5 K/cumm HISTORICAL RESULTS Basophils, abs 0.0 0.0 - 0.2 K/cumm HISTORICAL RESULTS Neutrophils 78.1(H) 38.7 - 74.5 % HISTORICAL RESULTS Lymphocytes 12.3(L) 20.0 - 54.3 % HISTORICAL RESULTS Monos 8.4 4.3 - 13.5 % HISTORICAL RESULTS Eosinophils 1.1 0.0 - 6.0 % HISTORICAL RESULTS Basophils 0.1 0.0 - 3.0 % HISTORICAL RESULTS Blood specimen (specimen) 09/02/2014 8:48 AM CDT Elena Riojas [employer] LAB BLOOD ORDERABLES Final Result HISTORICAL RESULTS * XR Spine Lumbar 2 Or 3 View (09/01/2014 8:32 AM CDT) Anatomical Region Laterality Modality Spine N/A Radiographic Gloria ging 09/01/2014 8:32 AM CDT Narrative 09/01/2014 8:45 AM CDT BINA BOWERS M.D. FINAL REPORT ACC# ??Date Time ??Exam [id number] Sep 01, 2014 08:32:00 [id number] Spine Lumbar 2 or 3 views EXAMINATION: ?Lumbar spine 2 or 3 views. HISTORY: ??Lumbar spondylosis. FINDINGS: ?? A two-view portable examination of the lumbar spine with the patient upright a stretcher is submitted for interpretation with comparison made to portable intraoperative radiograph performed 08/31/2014 at 2030 hours. Surgical changes of posterior instrumented spinal fusion extending from L2-L5 are present with discectomy and intervertebral disc spacer placement at L3-L4 and L4-L5. Decompression posteriorly has been performed from L2-L5. The L2 pedicular screws are again noted to have a cranial angulation within the vertebral body and appear proud to the anterior vertebral body cortex. No fractures are identified. Surgical drains project over the posterior low back. IMPRESSION: ?? Posterior instrumented spinal fusion and decompression L2-L5 with L3-L5 discectomy and interbody fusion. The position of the L2 pedicular screws was conveyed to the [facility] neurosurgery nurse practitioner by at 0840hours on 09/01/2014. Requested By: MAYKEL TALAVERA M.D. Dictated By: ?? BINA BOWERS M.D. ??on Sep 01 2014 ??8:45A This document has been electronically signed by: BINA BOWERS M.D. on Sep 01 2014 ??8:45A [id number] Procedure Note Provider, MD Ender - 08/23/2016 BINA BOWERS M.D. FINAL REPORT ACC# Date Time Exam [id number] Sep 01, 2014 08:32:00 [id number] Spine Lumbar 2 or 3 views EXAMINATION: Lumbar spine 2 or 3 views. HISTORY: Lumbar spondylosis. FINDINGS: A two-view portable examination of the lumbar spine with the patient upright a stretcher is submitted for interpretation with comparison made to portable intraoperative radiograph performed 08/31/2014 at 2030 hours. Surgical changes of posterior instrumented spinal fusion extending from L2-L5 are present with discectomy and intervertebral disc spacer placement at L3-L4 and L4-L5. Decompression posteriorly has been performed from L2-L5. The L2 pedicular screws are again noted to have a cranial angulation within the vertebral body and appear proud to the anterior vertebral body cortex. No fractures are identified. Surgical drains project over the posterior low back. IMPRESSION: Posterior instrumented spinal fusion and decompression L2-L5 with L3-L5 discectomy and interbody fusion. The position of the L2 pedicular screws was conveyed to the [facility] neurosurgery nurse practitioner by at 0840hours on 09/01/2014. Requested By: MAYKEL TALAVERA M.D. Dictated By: BINA BOWERS M.D. on Sep 01 2014 8:45A This document has been electronically signed by: BINA BOWERS M.D. on Sep 01 2014 8:45A [id number] Historical Provider IMJeannie XR PROCEDURES Final R esult * (ABNORMAL) Plasma basic metabolic panel (08/31/2014 11:50 PM CDT) Pathologist [facility] Sodium 142 135 - 145 mmol/L HISTORICAL RESULTS K, pl 4.2 3.3 - 4.9 mmol/L HISTORICAL RESULTS Chloride 112(H) 97 - 110 mmol/L HISTORICAL RESULTS CO2 24 22 - 32 mmol/L HISTORICAL RESULTS A. gap 6 0 - 16 mmol/L HISTORICAL RESULTS Glucose 136 70 - 199 mg/dl HISTORICAL RESULTS BUN 10 8 - 25 mg/dl HISTORICAL RESULTS Creatinine 0.75 0.60 - 1.10 mg/dl HISTORICAL RESULTS Calcium 7.5(L) 8.6 - 10.3 mg/dl HISTORICAL RESULTS Plasma 08/31/2014 11:5 0 PM CDT Law Palomares MD LAB BLOOD ORDERABLES Final Result HISTORICAL RESULTS * Plasma basic metabolic panel (08/31/2014 10:30 PM CDT) Pathologist [facility] Sodium See Comment 135 - 145 mmol/L HISTORICAL RESULTS Comment: Credited; unlikely result or concurrent to an unlikely result; deleted at the request of Clara Le RN on 08/31/2014 23:45:21 CDT by thp. K, pl See Comment 3.3 - 4.9 mmol/L HISTORICAL RESULTS Comment: Credited; unlikely result or concurrent to an unlikely result; deleted at the request of Clara Le RN on 08/31/2014 23:45:21 CDT by thp. Chloride See Comment 97 - 110 mmol/L HISTORICAL RESULTS Comment: Credited; unlikely result or concurrent to an unlikely result; deleted at the request of Clara Le RN on 08/31/2014 23:45:21 CDT by thp. CO2 See Comment 22 - 32 mmol/L HISTORICAL RESULTS Comment: Credited; unlikely result or concurrent to an unlikely result; deleted at the request of Clara Le RN on 08/31/2014 23:45:21 CDT by thp. A. gap See Comment 0 - 16 mmol/L HISTORICAL RESULTS Comment: Credited; unlikely result or concurrent to an unlikely result; deleted at the request of Clara Le RN on 08/31/2014 23:45:21 CDT by thp. Glucose See Comment 70 - 199 mg/dl HISTORICAL RESULTS Comment: Credited; unlikely result or concurrent to an unlikely result; deleted at the request of Clara Le RN on 08/31/2014 23:45:21 CDT by thp. BUN See Comment 8 - 25 mg/dl HISTORICAL RESULTS Comment: Credited; unlikely result or concurrent to an unlikely result; deleted at the request of Clara Le RN on 08/31/2014 23:45:21 CDT by thp. Creatinine See Comment 0.60 - 1.10 mg/dl HISTORICAL RESULTS Comment: Credited; unlikely result or concurrent to an unlikely result; deleted at the request of Clara Le RN on 08/31/2014 23:45:21 CDT by [facility]. Calcium See Comment 8.6 - 10.3 mg/dl HISTORICAL RESULTS Comment: Credited; unlikely result or concurrent to an unlikely result; deleted at the request of Clara Le RN on 08/31/2014 23:45:21 CDT by [facility]. Plasma 08/31/2014 10:3 0 PM CDT Maykel Celina Talavera MD LAB BLOOD ORDERABLES Final Result HISTORICAL RESULTS * (ABNORMAL) Blood cell count (CBC) (08/31/2014 10:30 PM CDT) WBC 8.4 3.8 - 9.8 K/cumm HISTORICAL RESULTS RBC 2.81(L) 3.90 - 5.00 M/cumm HISTORICAL RESULTS Hgb 8.3(L) 12.1 - 15.1 g/dl HISTORICAL RESULTS Hct 25.3(L) 36.1 - 44.3 % HISTORICAL RESULTS MCV 90.2 80.0 - 97.6 fl HISTORICAL RESULTS MCH 29.7 26.7 - 33.7 pg HISTORICAL RESULTS MCHC 32.9 32.7 - 35.5 g/dl HISTORICAL RESULTS Rdw 13.6 11.8 - 14.6 % HISTORICAL RESULTS Platelets 125(L) 140 - 440 K/cumm HISTORICAL RESULTS MPV 7.5 6.8 - 10.4 fl HISTORICAL RESULTS Neutrophils, abs 6.6 1.8 - 6.6 K/cumm HISTORICAL RESULTS Lymphocytes, abs 1.0(L) 1.2 - 3.3 K/cumm HISTORICAL RESULTS Monocytes, absolute 0.7 0.2 - 1.2 K/cumm HISTORICAL RESULTS Eosinophils, abs 0.1 0.0 - 0.5 K/cumm HISTORICAL RESULTS Basophils, abs 0.0 0.0 - 0.2 K/cumm HISTORICAL RESULTS Neutrophils 78.5(H) 38.7 - 74.5 % HISTORICAL RESULTS Lymphocytes 11.4(L) 20.0 - 54.3 % HISTORICAL RESULTS Monos 8.7 4.3 - 13.5 % HISTORICAL RESULTS Eosinophils 1.3 0.0 - 6.0 % HISTORICAL RESULTS Basophils 0.1 0.0 - 3.0 % HISTORICAL RESULTS Blood specimen (specimen) 08/31/2014 10:30 PM [facility] LAB BLOOD ORDERABLES Final Result Performing Organization Address City/State/[facility] Co de Phone Number HISTORICAL RESULTS * XR Spine Lumbar 2 Or 3 View (08/31/2014 8:49 PM CDT) Anatomical Region Laterality Modality Spine N/A Radiographic Gloria ging 08/31/2014 8:49 PM CDT Narrative 09/01/2014 7:24 AM CDT BINA BOWERS M.D. FINAL REPORT ACC# ??Date Time ??Exam [id number] Aug 31, 2014 20:49:00 [id number] Spine Lumbar 2 or 3 views EXAMINATION: ?Lumbar spine 2-3 views. HISTORY: ??Lumbar spondylosis. FINDINGS: ??A two-view portable intraoperative examination of the lumbar spine is submitted on 3 exposures. In the interval from the prior examination, the patient has undergone decompression and posterior instrumented spinal fusion extending from L2-L5. Discectomy and interbody cage devices are present at L3-L4 and L4-L5. The L2 pedicle screws have a more vertical position within the vertebral body compared to the L3-L5 pedicular screws. Soft tissue gas is noted at the operative site. IMPRESSION: ?? In progress combined anterior and posterior instrumented spinal fusion L2-L5 with L2-L5 posterior decompression. Requested By: Dictated By: ?? BINA BOWERS M.D. ??on Sep 01 2014 ??7:24A This document has been electronically signed by: BINA BOWERS M.D. on Sep 01 2014 ??7:24A [id number] Procedure Note Provider, Ender, - 08/23/2016 BINA BOWERS M.D. FINAL REPORT ACC# Date Time Exam [id number] Aug 31, 2014 20:49:00 [id number] Spine Lumbar 2 or 3 views EXAMINATION: Lumbar spine 2-3 views. HISTORY: Lumbar spondylosis. FINDINGS: A two-view portable intraoperative examination of the lumbar spine is submitted on 3 exposures. In the interval from the prior examination, the patient has undergone decompression and posterior instrumented spinal fusion extending from L2-L5. Discectomy and interbody cage devices are present at L3-L4 and L4-L5. The L2 pedicle screws have a more vertical position within the vertebral body compared to the L3-L5 pedicular screws. Soft tissue gas is noted at the operative site. IMPRESSION: In progress combined anterior and posterior instrumented spinal fusion L2-L5 with L2-L5 posterior decompression. Requested By: Dictated By: BINA BOWERS M.D. on Sep 01 2014 7:24A This document has been electronically signed by: BINA BOWERS M.D. on Sep 01 2014 7:24A [id number] us Historical Provider IMG XR PROCEDURES Final R esult * (ABNORMAL) Blood gas, point of care, arterial (08/31/2014 8:27 PM CDT) Ph, art 7.32(L) 7.35 - 7.45 HISTORICAL RESULTS PCO2 46(H) 35 - 45 mm Hg HISTORICAL RESULTS PO2, art 41(L) 80 - 105 mm Hg HISTORICAL RESULTS Sodium, bld 142 135 - 145 mmol/L HISTORICAL RESULTS Potassium, bld 4.1 3.3 - 4.9 mmol/L HISTORICAL RESULTS Ca, ionized, bld 4.37(L) 4.50 - 5.10 mg/dl HISTORICAL RESULTS Hct 31.0(L) 36.1 - 44.3 % HISTORICAL RESULTS Glu, art 99 70 - 199 mg/dl HISTORICAL RESULTS HCO3, art 24 20 - 30 mmol/L HISTORICAL RESULTS CO2, calc, art 25 22 - 32 mmol/L HISTORICAL RESULTS BE, art -2.4 mmol/L HISTORICAL RESULTS O2 sat, art 71(L) 95 - 98 % HISTORIC AL RESULTS Arterial blood 08/31/2014 8: 27 PM CDT Result [facility] Law Palomares MD LAB BLOOD ORDERABLES Final Result Performing Organization Address [facility] de Phone Number HISTORICAL RESULTS * (ABNORMAL) Blood gas, point of care, arterial (08/31/2014 7:34 PM CDT) Ph, art 7.33(L) 7.35 - 7.45 HISTORICAL RESULTS PCO2 41 35 - 45 mm Hg HISTORICAL RESULTS PO2, art 46(L) 80 - 105 mm Hg HISTORICAL RESULTS Sodium, bld 142 135 - 145 mmol/L HISTORICAL RESULTS Potassium, bld 3.2(L) 3.3 - 4.9 mmol/L HISTORICAL RESULTS Ca, ionized, bld 4.25(L) 4.50 - 5.10 mg/dl HISTORICAL RESULTS Hct 24.0(L) 36.1 - 44.3 % HISTORICAL RESULTS Glu, art 83 70 - 199 mg/dl HISTORICAL RESULTS HCO3, art 22 20 - 30 mmol/L HISTORICAL RESULTS CO2, calc, art 23 22 - 32 mmol/L HISTORICAL RESULTS BE, art -4.0 mmol/L HISTORICAL RESULTS O2 sat, art 78(L) 95 - 98 % HISTORIC AL RESULTS Arterial blood 08/31/2014 7: 34 PM CDT Law Palomares MD LAB BLOOD ORDERABLES Final Result Performing Organization Address [facility] de Phone Number HISTORICAL RESULTS * (ABNORMAL) Blood gas, point of care, arterial (08/31/2014 6:16 PM CDT) Ph, art 7.38 7.35 - 7.45 HISTORICAL RESULTS PCO2 41 35 - 45 mm Hg HISTORICAL RESULTS PO2, art 91 80 - 105 mm Hg HISTORICAL RESULTS Sodium, bld 142 135 - 145 mmol/L HISTORICAL RESULTS Potassium, bld 3.5 3.3 - 4.9 mmol/L HISTORICAL RESULTS Ca, ionized, bld 4.77 4.50 - 5.10 mg/dl HISTORICAL RESULTS Hct 25.0(L) 36.1 - 44.3 % HISTORICAL RESULTS Glu, art 84 70 - 199 mg/dl HISTORICAL RESULTS HCO3, art 24 20 - 30 mmol/L HISTORICAL RESULTS CO2, calc, art 26 22 - 32 mmol/L HISTORICAL RESULTS BE, art -0.8 mmol/L HISTORICAL RESULTS O2 sat, art 97 95 - 98 % HISTORIC AL RESULTS Arterial blood 08/31/2014 6: 16 PM CDT us Law Palomares MD LAB BLOOD ORDERABLES Final Result HISTORICAL RESULTS * Critical result call back (08/31/2014 5:30 PM CDT) Date notified 08/31/2014 HISTO RICAL RESULTS Time notified 23:48 HISTOR ICAL RESULTS Test name Potassium, Calcium HISTORICAL RESULTS Called to Clara Le HISTORICAL RESULTS Credentials RN HISTORIC AL RESULTS Called by rusty HISTORICAL RESULTS No specimen 08/31/2014 5:30 PM CDT Narrative HISTORICAL RESULTS - 08/31/2014 6:49 PM CDT Attribute Deleted us Maykel Talavera MD LAB BLOOD ORDERABLES Final Result HISTORICAL RESULTS * OUTSIDE NEURO CT MR REFERENCE (08/31/2014 5:56 AM CDT) Anatomical Region Laterality Modality N/A Computed Tomogra phy 08/31/2014 5:56 AM CDT Narrative 08/31/2014 6:21 AM CDT [employer], FINAL REPORT ACC# ??Date Time ??Exam [id number] Aug 31, 2014 05:56:00 [id number] [facility] Neuro Reference EXAMINATION: ?Images For Reference Purposes Only IMPRESSION: ?These images have been uploaded for Reference purposes only. ??There will be no separate report generated by a [facility] Radiologist. Requested By: Dictated By: ?? OUTSIDE IMAGES [employer] HARVESTER, ?? on Aug 31 2014 ??6:21A This document has been electronically signed by: [employer]STER, ??on Aug 31 2014 ??6:21A [id number] Procedure Note Provider, Ender, - 08/23/2016 [employer], FINAL REPORT ACC# Date Time Exam [id number] Aug 31, 2014 05:56:00 [id number] [facility] Neuro Reference EXAMINATION: Images For Reference Purposes Only IMPRESSION: These images have been uploaded for Reference purposes only. There will be no separate report generated by a [facility] Radiologist. Requested By: Dictated By: OUTS[employer] HARVESTER, on Aug 31 2014 6:21A This document has been electronically signed by: OUTS[employer] HARVESTER, on Aug 31 2014 6:21A [id number] Historical Provider IMG CT PROCEDURES Final R esult * Blood ABO, Rh, indirect ab screen (08/31/2014 5:47 AM CDT) Lila, indirect Negative HISTORICAL RESULTS ABO, Rho(D) A Positive HISTORI YESENIA RESULTS Blood specimen (specimen) 08/31/2014 5:47 AM CDT Law Palomares MD LAB BLOOD ORDERABLES Final Result HISTORICAL RESULTS documented in this encounter Visit Diagnoses Diagnosis Spinal stenosis of lumbar region with neurogenic claudication Hypotension Unspecified hypotension Scoliosis (and kyphoscoliosis), idiopathic Urinary incontinence Unspecified urinary incontinence documented in this encounter
--- OUTSIDE RECORDS SUMMARY | 2024-05-05 15:31 | XMS_ITS | Encounter Summary ---
Author Organization [facility] Address [address] [place] [address] Care Team Providers Care Environmental Compliance Engineer Name Role Phone Heriberto Delgado MD Primary Care Provider [phone] Reason for Referral * Diagnostic Imaging (Routine) - Closed Specialty Diagnoses / Procedures Referred By Otf abdalla Referred To Contact Diagnoses Atypical chest pain CARRILLO (dyspnea on exertion) Procedures Transthoracic Echo Complete W Doppler/CF Uma Doll MD Phone: tel: fax: Referral ID Status Reason Start Date Expiration Date Visits Re quested Visits Authorized [id number] Closed 11/19/2018 05/30/2020 1 1 Reason for Visit * Reason Comments New Patient chest pressure * Cardiology (Routine) - Closed Specialty Diagnoses / Procedures Referred By Contjasmyn t Referred To Contact Cardiology Diagnoses Chest pain, unspecified type Heriberto Delgado MD Phone: tel: fax: [facility] [address] [place] [address] Phone: tel: fax: Referral ID Status Reason Start Date Expiration Date V isits Requested Visits Authorized [id number] Closed Specialty Services Required 09/19/2018 03/30/2020 1 1 Encounter Details Date Type Department Care Team (Late st Contact Info) Description 11/19/2018 9:30 AM CDT Office Visit [facility] [address] [place] [address] Uma Doll MD [facility] [address] Atypical chest pain (Primary Dx); CARRILLO (dyspnea on exertion) Social History Tobacco Use Types Packs/Day Years Used Date Smoking Tobacco: Never Smokeless Tobacco: Never Alcohol Use Standard Drinks/Week Comments Yes 0 (1 standard drink = 0.6 oz pur e alcohol) 1 drink per day Comments Unknown Sex and Gender Information Value Date Recorded Sex Assigned at Not on file Legal Sex Female 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 Gender Identity Female 12/19/2018 8:20 AM CDT Sexual Orientation Straight 08/07/2023 11 :02 AM CDT documented as of this encounter Last Filed Vital Signs Vital Sign Reading Time Taken Comments Blood Pressure 116/82 11/19/2018 9:00 AM CDT Pulse 62 11/19/2018 9:00 AM CDT Temperature - - Respiratory Rate - - Oxygen Saturation 95% 11/19/2018 9:00 AM CDT Inhaled Oxygen Concentration - - Weight 78.9 kg (174 lb) 11/19/2018 9:00 AM CDT Height 162.6 cm (5' 4 ) 11/19/2018 9:00 AM CDT Body Mass Index 29.87 11/19/2018 9:00 AM CDT documented in this encounter Ordered Prescriptions Prescription Sig Dispense Quantity Refills Last Filled Start Date End Date aspirin 81 mg enteric coated tablet Take 1 tablet (81 mg total) by mouth daily 30 tablet 11 11/19/2018 documented in this encounter Progress Notes * Uma Doll MD - 11/19/2018 9:30 AM CDT [facility] 11/19/2018 CHIEF COMPLAINT Chief Complaint Patient presents with ??? New Patient chest pressure Occasional Chest pressure since June 2018 MAIK Muir is a 73 y.o. female with DJD; [...] denies any prior cardiac history including clinical ND, angina, heart failure on a arrhythmias. S he is a nonsmoker. MEDICAL HISTORY she has a past medical [...] Lipoma resection. she Allergies Allergen Reactions ??? Acetaminophen ??? Tree And Shrub Pollen Current Outpatient Medications Medication Sig Dispense Refill ??? biotin 2,500 mcg capsule Take 7,500 [...] tablet Take 50 mg by mouth daily ??? aspirin 81 mg enteric coated tablet Take 1 tablet (81 mg total) by mouth daily 30 tablet 11 No current facility-administered medications for this visit. she family history includes Arthritis in her mother; Cancer in an other family member; Heart disease in her father; Hyperlipidemia in her brother; Hypertension in an other family member. she reports that she has never smoked. She has never used smokeless tobacco. She reports that she drinks alcohol. 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 Lives alone, her son lives in town. [...] poor R-wave progression, nonspecific ST-T abnormalities. 11/19/2018 PHYSICAL EXAM Vitals BP 116/82 (BP Location: Right arm, Patient Position: Sitting) Pulse 62 Ht 162.6 cm (5' 4 ) Wt 78.9 kg (174 lb) SpO2 95% BMI 29.87 kg/m?? General appearance - alert, no distress, [...] for this visit: Atypical chest pain (Primary) - Ambulatory referral to Cardiology - Transthoracic Echo Complete W Doppler/CF; Future CARRILLO (dyspnea on exertion) - Transthoracic Echo Complete W Doppler/CF; Future Other orders - aspirin 81 mg enteric coated tablet; Take 1 tablet (81 mg total) by mouth daily PLAN/RECOMMENDATIONS 73-year-old female with no known prior cardiac history. - occasional episodes of chest discomfort since June 2018, nonexertional in nature. Features atypical for ischemia. EKG performed in the clinic today which I personally evaluated shows sinus rhythm, poor R-wave progression, nonspecific ST-T abnormalities. Recent stress echocardiogram negative for ischemia, although patient had decreased exercise capacity. - due to dyspnea on exertion, will proceed with echocardiogram with Doppler to assess LV/RV function and rule out structural heart disease. Patient's symptoms of chest discomfort have atypical features. At this time , continue to monitor, and will consider any additional ischemic evaluation based on patient's clinical course and echo findings. Low-dose aspirin regimen was recommended. Patient was advised to avoid other NSAIDs. - diet and lifestyle modification for dyslipidemia. - Counseling was done for heart healthy diet, aerobic exercise at least 5 times a week, Medication compliance. More than 50% of the time was spent on counseling. - RTC 4-8 weeks or sooner if needed. Uma Doll MD 11/19/18 Voice recognition software was used to complete this document, therefore, lab assistant variances may occur. documented in this encounter Miscellaneous Notes * Addendum Note - Thania Bear MA - 11/19/2018 9:30 AM CDTAddended by: THANIA BEAR on: 11/20/2018 08:20 AM Modules accepted: Orders documented in this encounter Plan of Treatment Not on file documented as of this encounter Procedures Procedure Name Priority Date/Time Associated Diagnosis Comments ECG 12-LEAD Routine 11/19/2018 Atypical chest pain documented in this encounter Results * TRANSTHORACIC ECHO (TTE) COMPLETE W DOPPLER/CF W CONTRAST (12/17/2018 8:59 AM CDT) Anatomical Region Laterality Modality Ultrasound 12/17/2018 7:59 AM CDT Narrative 12/17/2018 12:18 PM CDT [facility] [address], [place] [address] [address], [place] [address] P:[phone] P:[phone] Echocardiographic Report Patient Name: LEISA MUIR : [id number] Study Date: 12/17/2018 7:59:30 AM Gender: F Tech: Location: [place] Ref.Provider: ULISES Height(Cm): 163 BSA: 1.84 Weight(Kg): [...] Findings: Interpretation Site: Exam was interpreted at [facility]. Left Ventricle: Definity contrast agent used to [...] rhythm. Electronically Signed By: Uma Doll MD, [facility] 2018-12-17 12:18:11 CDT Procedure Note Uma Doll MD - 12/17/2018 [facility] [facility] [address], [place] [address] [address] [address] P:[phone] P:[phone] Echocardiographic Report Patient Name: LEISA MUIRPatient ID: [id number] : [id number] Date: 12/17/2018 7:59:30 AM Gender: FAccession #: [id number] Tech: GMLocation: [place] Ref.Provider: ADAMSHeight(Cm): 163 BSA: 1.84Weight(Kg): 78.93 Heart [...] 16.00 - 28.00 ] cc/m2 MV Decel [id number] [ 150 - 200 ] msec ACS MM 1.88 cm PV Peak Vel0.63 [ 0.40 - 0.80 ] m/s TR Peak Vel2.45 [ 0.40 - 0.80 ] m/s TR Peak PG 24mmHg RVSP32.00 mmHg E'0.09 E/E' 5 Findings: Interpretation Site: Exam was interpreted at [facility]. Left Ventricle: Definity contrast agent used to [...] rhythm. Electronically Signed By: Uma Doll MD, [facility] 2018-12-17 12:18:11 CDT Uma Doll MD CV ECHO PROCEDURES Final Result * ECG 12 lead (11/19/2018) Uma Doll MD ECG ORDERABLES Final Result documented in this encounter Visit Diagnoses Diagnosis Atypical chest pain- Primary Other chest pain CARRILLO (dyspnea on exertion) Other dyspnea and respiratory abnormality Atypical chest pain Other chest pain CARRILLO (dyspnea on exertion) Other dyspnea and respiratory abnormality documented in this encounter Discontinued Medications Medication Sig Discontinue Reason Start Date End Da te naproxen (ANAPROX,ALEVE) 220 mg tablet Take 660 mg by mouth every 12 (twelve) hours as needed for pain 11/19/2018 documented as of this encounter Historical Medications * This list may reflect changes made after this encounter. biotin 2,500 mcg capsule Take 7,500 mg by mouth daily cyanocobalamin (Vitamin B-12) 1,000 mcg tabletIndications :Prevention of Vitamin B12 Deficiency Take 1,000 mcg by mouth daily cholecalciferol (VITAMIN D-3) 1,000 unit tablet Take 1 tablet po 5 days a week sertraline (ZOLOFT) 50 mg tablet Take 50 mg by mouth daily oxybutynin (DITROPAN) 5 mg tablet Take 5 mg by mouth 3 (three) times a day naproxen (ANAPROX,ALEVE) 220 mg tablet Take 660 mg by mouth every 12 (twelve) hours as needed for pain 11/19/2018 added in this encounter Orders Outpatient Referral Count Last Ordered Date Fir st Ordered Date AMB REFERRAL TO CARDIOLOGY 1 11/19/2018 documented in this encounter Care Teams Environmental Compliance Engineer Relationship Specialty Start Date End Date Heriberto Delgado MD PCP - General Internal Medicine 09/19/18 documented as of this encounter
--- OUTSIDE RECORDS SUMMARY | 2024-05-05 15:31 | XMS_ITS | Encounter Summary ---
Author Organization [facility] Care Team Providers Care Physical Chemistry Teacher Name Role Phone Unavailable Primary Care Provider Unavailabl e Encounter Details Date Type Department Care Team (Latest Contact Info) Description 10/11/2014 - 10/11/2014 11:59 PM CDT Hospital Encounter 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 FINAL REPORT The radiology attending physician has personally reviewed this study, and has reviewed and/or edited this written report and agrees with it. ACC# ??Date Time ??Exam [id number] Oct 11, 2014 15:12:00 [id number] Spine Lumbar 2 or 3 views ACC# ??Date Time ??Exam [id number] Oct 11, 2014 15:12:00 [id number] Spine Lumbar 2 or 3 views EXAMINATION: ?Lumbar spine 2 or 3 views HISTORY: ??Lumbar spondylosis FINDINGS: ?? Upright AP and lateral views of the lumbar spine are compared to prior study dated 09/01/2014. There is posterior decompression with posterior instrumented spinal fusion from L2 to L5 with discectomy and interbody fusion at L3-L4 and L4-L5. The left L2 pedicle screw extends beyond the anterior vertebral body wall, which is unchanged. The surgical drain has been removed. Vertebral body heights are normal. There is mild, unchanged degenerative disc disease of the nonfused segments. ?? IMPRESSION: Unchanged posterior decompression with posterior instrumented spinal fusion from L2 to L5 with discectomy and interbody fusion at L3-L5. The left L2 pedicle screw extends beyond the anterior vertebral body wall, which is unchanged. ?? Requested By: LAW FUNES M.D. Dictated By: ?? THEODORE BERMAN M.D. ??on Oct ??2014 ??3:38P This document has been electronically signed by: EDILIA TORRES M.D. on Oct ??2014 ??9:39P [id number] Procedure Note ProviderEnder MD - 08/23/2016 Catalina MOSS M.D. FINAL REPORT The radiology attending physician has personally reviewed this study, and has reviewed and/or edited this written report and agrees with it. ACC# Date Time Exam [id number] Oct 11, 2014 15:12:00 [id number] Spine Lumbar 2 or 3 views ACC# Date Time Exam [id number] Oct 11, 2014 15:12:00 [id number] Spine Lumbar 2 or 3 views EXAMINATION: Lumbar spine 2 or 3 views HISTORY: Lumbar spondylosis FINDINGS: Upright AP and lateral views of the lumbar spine are compared to prior study dated 09/01/2014. There is posterior decompression with posterior instrumented spinal fusion from L2 to L5 with discectomy and interbody fusion at L3-L4 and L4-L5. The left L2 pedicle screw extends beyond the anterior vertebral body wall, which is unchanged. The surgical drain has been removed. Vertebral body heights are normal. There is mild, unchanged degenerative disc disease of the nonfused segments. IMPRESSION: Unchanged posterior decompression with posterior instrumented spinal fusion from L2 to L5 with discectomy and interbody fusion at L3-L5. The left L2 pedicle screw extends beyond the anterior vertebral body wall, which is unchanged. Requested By: LAW FUNES M.D. Dictated By: THEODORE BERMAN M.D. on Oct 11 2014 3:38P This document has been electronically signed by: EDILIA TORRES M.D. on Oct 11 2014 9:39P [id number] us Historical Provider MD LOPEZ XR PROCEDURES Final R esult documented in this encounter Visit Diagnoses Diagnosis Aftercare following other surgery of musculoskeletal system Arthrodesis status documented in this encounter
--- OUTSIDE RECORDS SUMMARY | 2024-05-05 15:31 | XMS_ITS | Encounter Summary ---
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
--- OUTSIDE RECORDS SUMMARY | 2024-05-05 15:31 | XMS_ITS | Encounter Summary ---
Author Organization [facility] Care Team Providers Care Service Rig Operator Name Role Phone Unavailable Primary Care Provider Unavailabl e Encounter Details Date Type Department Care Team (Latest Contact Info) Description 12/13/2014 - 12/13/2014 11:59 PM CDT Hospital Encounter 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 FINAL REPORT The radiology attending physician has personally reviewed this study, and has reviewed and/or edited this written report and agrees with it. ACC# ??Date Time ??Exam [id number] Dec 13, 2014 15:26:00 [id number] Spine Lumbar 2 or 3 views ACC# ??Date Time ??Exam [id number] Dec 13, 2014 15:26:00 [id number] Spine Lumbar 2 or 3 views EXAMINATION: ?Lumbar spine 2 or 3 views HISTORY: ??Lumbar spondylosis FINDINGS: AP and lateral views of the lumbar spine are compared to the radiographs dated 10/11/2014. Posterior decompression and instrumented fusion is identified at L2-L5 with anterior discectomy and interbody fusion at L3-L5. The left L2 pedicle screw remains proud, extending beyond the anterior vertebral body. There is unchanged dextrocurvature of the lumbar spine with grade 1 anterolisthesis of L4 on L5. Moderate T12-L2 degenerative disc disease is unchanged. No fractures are identified. ?? IMPRESSION: 1. Unchanged posterior decompression and instrumented spinal fusion L2-L5 with anterior discectomy and interbody fusion at L3-L5. 2. Unchanged moderate T12-L2 degenerative disc disease. ?? Requested By: LAW FUNES M.D. Dictated By: ?? GORGE GARCIA M.D. ??on Dec 13 2014 ??3:54P This document has been electronically signed by: JEAN MARIE VELEZ M.D. F on Dec 13 2014 ??3:58P [id number] Procedure Note ProviderEnder MD - 08/23/2016 JEAN MARIE VELEZ M.D. F GORGE GARCIA M.D. FINAL REPORT The radiology attending physician has personally reviewed this study, and has reviewed and/or edited this written report and agrees with it. ACC# Date Time Exam [id number] Dec 13, 2014 15:26:00 [id number] Spine Lumbar 2 or 3 views ACC# Date Time Exam [id number] Dec 13, 2014 15:26:00 [id number] Spine Lumbar 2 or 3 views EXAMINATION: Lumbar spine 2 or 3 views HISTORY: Lumbar spondylosis FINDINGS: AP and lateral views of the lumbar spine are compared to the radiographs dated 10/11/2014. Posterior decompression and instrumented fusion is identified at L2-L5 with anterior discectomy and interbody fusion at L3-L5. The left L2 pedicle screw remains proud, extending beyond the anterior vertebral body. There is unchanged dextrocurvature of the lumbar spine with grade 1 anterolisthesis of L4 on L5. Moderate T12-L2 degenerative disc disease is unchanged. No fractures are identified. IMPRESSION: 1. Unchanged posterior decompression and instrumented spinal fusion L2-L5 with anterior discectomy and interbody fusion at L3-L5. 2. Unchanged moderate T12-L2 degenerative disc disease. Requested By: LAW FUNES M.D. Dictated By: GORGE GARCIA M.D. on Dec 13 2014 3:54P This document has been electronically signed by: JEAN MARIE VELEZ M.D. F on Dec 13 2014 3:58P [id number] us Historical Provider MD LOPEZ XR PROCEDURES Final R esult documented in this encounter Visit Diagnoses Diagnosis Lumbosacral spondylosis without myelopathy Degeneration of lumbar or lumbosacral intervertebral disc documented in this encounter
--- OUTSIDE RECORDS SUMMARY | 2024-05-05 15:31 | XMS_ITS | Encounter Summary ---
Author Organization [facility] Facility Care Team Providers Care Cloth Hauler Name Role Phone Unavailable Primary Care Provider Unavailabl e Encounter Details Date Type Department Care Team (Latest Contact Info) Description 09/19/2015 - 09/19/2015 11:59 PM CDT Hospital Encounter [facility] Law Perez MD [address] [place] [address] Spondylolysis of lumbar region; Other intervertebral disc degeneration, thoracolumbar region; Arthrodesis status Social History Tobacco Use Types Packs/Day Years Used Date Smoking Tobacco: Never Assessed Comments Unknown Sex and Gender Information Value Date Recorded Sex Assigned at Not on file 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 TEA GRAHAM M.D. FINAL REPORT The radiology attending physician has personally reviewed this study, and has reviewed and/or edited this written report and agrees with it. ACC# ??Date Time ??Exam [id number] September 19, 2015 13:15:00 [id number] Spine Lumbar min 4 views EXAMINATION: ?? Lumbar spine minimum 4 views HISTORY: ??Lumbar spondylosis, followup FINDINGS: ?? Four views lumbar spine are submitted with comparison made to 03/21/2015. There is unchanged L2-L5 posterior decompression and instrumented fusion and anterior discectomy and interbody fusion of L3-L5. The left L2 pedicle screw is again seen protruding past the anterior cortex. There is no evidence of instrumentation failure. There is no motion of the fused segments on flexion-extension. There is unchanged mild retrolisthesis of L1 on L2 and grade 1 anterolisthesis of L4 and L5 without excursion on flexion-extension. There is unchanged moderate T12-L1 degenerative disc disease. Atherosclerotic calcification of the abdominal aorta is present. IMPRESSION: ?? 1. Unchanged L2-L5 posterior decompression and instrumented fusion and L3-L5 anterior discectomy and interbody fusion. 2. Unchanged moderate T12-L1 degenerative disease. Requested By: LAW FUNES M.D. Dictated By: ?? TEA GRAHAM M.D. ??on Sep 19 2015 ??2:16P This document has been electronically signed by: TIESHA SAEED M.D. on Sep 19 2015 ??2:42P [id number] Procedure Note Provider, MD Ender - 08/23/2016 Catalina SALGUERO M.D. FINAL REPORT The radiology attending physician has personally reviewed this study, and has reviewed and/or edited this written report and agrees with it. ACC# Date Time Exam [id number] September 19, 2015 13:15:00 [id number] Spine Lumbar min 4 views EXAMINATION: Lumbar spine minimum 4 views HISTORY: Lumbar spondylosis, followup FINDINGS: Four views lumbar spine are submitted with comparison made to 03/21/2015. There is unchanged L2-L5 posterior decompression and instrumented fusion and anterior discectomy and interbody fusion of L3-L5. The left L2 pedicle screw is again seen protruding past the anterior cortex. There is no evidence of instrumentation failure. There is no motion of the fused segments on flexion-extension. There is unchanged mild retrolisthesis of L1 on L2 and grade 1 anterolisthesis of L4 and L5 without excursion on flexion-extension. There is unchanged moderate T12-L1 degenerative disc disease. Atherosclerotic calcification of the abdominal aorta is present. IMPRESSION: 1. Unchanged L2-L5 posterior decompression and instrumented fusion and L3-L5 anterior discectomy and interbody fusion. 2. Unchanged moderate T12-L1 degenerative disease. Requested By: LAW FUNES M.D. Dictated By: TEA GRAHAM M.D. on Sep 19 2015 2:16P This document has been electronically signed by: TIESHA SAEED M.D. on Sep 19 2015 2:42P [id number] Historical Provider MD LOPEZ XR PROCEDURES Final R esult documented in this encounter Visit Diagnoses Diagnosis Spondylolysis of lumbar region Lumbosacral spondylosis without myelopathy Other intervertebral disc degeneration, thoracolumbar region Arthrodesis status documented in this encounter
--- OUTSIDE RECORDS SUMMARY | 2024-05-05 15:31 | XMS_ITS | Encounter Summary ---
Author Organization [facility] Facility Care Team Providers Care First Grade Teacher Name Role Phone Unavailable Primary Care Provider Unavailabl e Encounter Details Date Type Department Care Team (Late st Contact Info) Description 06/21/2014 - 06/21/2014 11:59 PM GAS STATION SERVICE ATTENDANT Hospital Encounter [facility] Soni Tom[place]kins Jr., [place] [address] [address] Disturbance of skin sensation; Pain in soft tissues of limb; Scoliosis (and kyphoscoliosis), idiopathic; Degeneration of lumbar or lumbosacral intervertebral disc; Atherosclerosis of aorta (HCC) Social History Tobacco Use Types Packs/Day Years Used Date Smoking Tobacco: Never Assessed Comments Unknown Sex and Gender Information Value Date Recorded Sex Assigned at Not on file Legal Sex Female 1:41 AM GAS STATION SERVICE ATTENDANT Gender Identity Female 12/19/2018 8:20 AM CDT Sexual Orientation Straight 08/07/2023 11 :02 AM CDT documented as of this encounter Plan of Treatment Not on file documented as of this encounter Procedures Procedure Name Priority Date/Time Associated Diagnosis Comments XR SPINE LUMBAR ROUTINE Routine 06/21/2014 10:20 AM GAS STATION SERVICE ATTENDANT documented in this encounter Results * XR Lumbar Spine Routine (06/21/2014 10:20 AM GAS STATION SERVICE ATTENDANT) Anatomical Region Laterality Modality L-spine N/A Radiographic Gloria ging 06/21/2014 10:2 0 AM GAS STATION SERVICE ATTENDANT Narrative 06/21/2014 10:40 AM GAS STATION SERVICE ATTENDANT ADRIÁN MCWILLIAMS M.D. FINAL REPORT ACC# ??Date Time ??Exam [id number] Jun 21, 2014 10:20:00 [id number] Spine Lumbar min 4 views EXAMINATION: ?Lumbar spine minimum 4 views HISTORY: ??Lumbar spondylolisthesis, scoliosis FINDINGS: ?? Four views of the lumbar spine are submitted without comparison. There is mild rotatory dextroscoliosis with apex at L2-L3. There is also mild right lateral listhesis of L3 on L4 and mild grade 1 L4 on L5 anterolisthesis. There is moderate L4-L5 and mild T12-L4 degenerative disc disease. There are no compression fractures. There is hypomobility with flexion and extension. There is partial reduction of L4-L5 anterolisthesis in extension with no change in flexion. There is mild aortic atherosclerosis. IMPRESSION: ?? 1. Grade 1 L4 on L5 anterolisthesis with partial reduction in extension and no change with flexion. 2. Mild rotatory lumbar dextroscoliosis and right lateral listhesis of L3 on L4. 3. Multilevel degenerative disc disease, worst at L4-L5. Requested By: SONI ELLIOTT M.D. Dictated By: ?? ADRIÁN MCWILLIAMS M.D. ??on Jun 21 2014 10:40A This document has been electronically signed by: ADRIÁN MCWILLIAMS M.D. on Jun 21 2014 10:40A [id number] Procedure Note Provider, MD Ender - 08/23/2016 ADRIÁN MCWILLIAMS M.D. FINAL REPORT ACC# Date Time Exam [id number] Jun 21, 2014 10:20:00 [id number] Spine Lumbar min 4 views EXAMINATION: Lumbar spine minimum 4 views HISTORY: Lumbar spondylolisthesis, scoliosis FINDINGS: Four views of the lumbar spine are submitted without comparison. There is mild rotatory dextroscoliosis with apex at L2-L3. There is also mild right lateral listhesis of L3 on L4 and mild grade 1 L4 on L5 anterolisthesis. There is moderate L4-L5 and mild T12-L4 degenerative disc disease. There are no compression fractures. There is hypomobility with flexion and extension. There is partial reduction of L4-L5 anterolisthesis in extension with no change in flexion. There is mild aortic atherosclerosis. IMPRESSION: 1. Grade 1 L4 on L5 anterolisthesis with partial reduction in extension and no change with flexion. 2. Mild rotatory lumbar dextroscoliosis and right lateral listhesis of L3 on L4. 3. Multilevel degenerative disc disease, worst at L4-L5. Requested By: SONI ELLIOTT M.D. Dictated By: ADRIÁN MCWILLIAMS M.D. on Jun 21 2014 10:40A This document has been electronically signed by: ADRIÁN MCWILLIAMS M.D. on Jun 21 2014 10:40A [id number] Historical Provider MD LOPEZ XR PROCEDURES Final R esult documented in this encounter Visit Diagnoses Diagnosis Disturbance of skin sensation Pain in soft tissues of limb Scoliosis (and kyphoscoliosis), idiopathic Degeneration of lumbar or lumbosacral intervertebral disc Atherosclerosis of aorta (HCC) Atherosclerosis of aorta documented in this encounter
--- OUTSIDE RECORDS SUMMARY | 2024-05-05 15:31 | XMS_ITS | Encounter Summary ---
Author Organization [facility] Facility Care Team Providers Care Home Therapy Teacher Name Role Phone Unavailable Primary Care Provider Unavailabl e Encounter Details Date Type Department Care Team (Latest Contact Info) Description 08/04/2014 9:13 AM CDT - 08/04/2014 4:00 PM CDT Hospital Encounter [facility] CLINCONLaw Currie MD [address] [place] [address] Other specified pre-operative examination; Pre-procedural laboratory examination; Pre-operative cardiovascular examination; Congenital [...] on file Legal Sex Female 1:41 AM CLINIC LEAD Gender Identity Female 12/19/2018 8:20 AM CDT Sexual Orientation Straight 08/07/2023 11 :02 AM CDT documented as of this encounter Plan of Treatment Not on file documented as of this encounter Procedures Procedure Name Priority Date/Time Associated Diagnosis Comments URINE (AEROBIC) CULTURE, CDR Routine 08/04/2014 11:00 AM CDT URINE MICROSCOPY Routine 08/04/2014 11:0 0 AM CDT PLASMA PROTHROMBIN TIME (PT) Routine 08/04/2014 11:00 AM CDT PLASMA BASIC METABOLIC PANEL Routine 08/04/2014 11:00 AM CDT BLOOD PARTIAL THROMBOPLASTIN TIME (PTT) Routine 08/04/2014 11:00 AM CDT URINALYSIS Routine 08/04/2014 11:00 AM CDT BLOOD CELL COUNT (CBC) Routine 5 11:00 AM CDT BLOOD ABO, RH, INDIRECT AB SCREEN Routine 08/04/2014 11:00 AM CDT ELECTROCARDIOGRAPHY (ECG) 08/04/2014 ALL MICROBIOLOGY REPORT SECTION Routine 08/04/2014 12:00 AM CDT DISCHARGE LABORATORY CUMULATIVE REPORT Routine 08/04/2014 12:00 AM CDT documented in this encounter Results * (ABNORMAL) Urinalysis (08/04/2014 11:00 AM CDT) Color, ur Yasmin Yellow HISTORICAL RESULTS Clarity, ur Cloudy(A) Clear HISTORIC AL RESULTS Specific gravity, ur 1.013 1.003 - 1.030 HISTORICAL RESULTS pH, ur 7.0 5.0 - 8.0 HISTORICAL RESULTS Protein, ur Negative Trace HISTORIC AL RESULTS Glucose, ur Negative Negative HISTORIC AL RESULTS Ketones, ur Trace(A) Negative HISTORIC AL RESULTS Bilirubin, ur Negative Negative HISTOR ICAL RESULTS U Blood 1+(A) Negative HISTORICAL RESULTS Urobilinogen, quant, ur <2.0 0.0 - 2.0 mg/dl HISTORICAL RESULTS Nitrites, ur Negative Negative HISTORI YESENIA RESULTS Leukocyte esterase, ur 2+(A) Negative HISTORICAL RESULTS Urine 08/04/2014 11:0 0 AM CDT Law Palomares MD LAB BLOOD ORDERABLES Final Result HISTORICAL RESULTS * (ABNORMAL) Urine microscopy (08/04/2014 11:00 AM CDT) Pathologist [facility] RBC, ur 0 0 - 3 /hpf HISTORICA L RESULTS WBC, ur >50(H) 0 - 5 /hpf HISTORICA L RESULTS Bacteria, ur 4+(A) Trace HISTORI YESENIA RESULTS Epithelial cells, renal, ur 0 0 - 0 /hpf HISTORICAL RESULTS Mucus, ur Small /hpf HISTORICAL RESULTS Urine 08/04/2014 11:0 0 AM CDT Law Palomares MD LAB BLOOD ORDERABLES Final Result Performing Organization Address [facility] de Phone Number HISTORICAL RESULTS * Plasma basic metabolic panel (08/04/2014 11:00 AM CDT) Pathologist [facility] Sodium 140 135 - 145 mmol/L HISTORICAL RESULTS K, pl 4.5 3.3 - 4.9 mmol/L HISTORICAL RESULTS Chloride 103 97 - 110 mmol/L HISTORICAL RESULTS CO2 29 22 - 32 mmol/L HISTORICAL RESULTS A. gap 8 0 - 16 mmol/L HISTORICAL RESULTS Glucose 85 70 - 199 mg/dl HISTORICAL RESULTS BUN 16 8 - 25 mg/dl HISTORICAL RESULTS Creatinine 0.75 0.60 - 1.10 mg/dl HISTORICAL RESULTS Calcium 9.2 8.6 - 10.3 mg/dl HISTORICAL RESULTS Plasma 08/04/2014 11:0 0 AM CDT Law Palomares MD LAB BLOOD ORDERABLES Final Result Performing Organization Address [facility] de Phone Number HISTORICAL RESULTS * Plasma prothrombin time (PT) (08/04/2014 11:00 AM CDT) Pathologist [facility] Prothrombin time (PT) 10.4 10.0 - 13.3 seconds HISTORICAL RESULTS INR 0.94 0.90 - 1.20 HISTORIC AL RESULTS Comment: Interpretive Data Inpatient therapeutic ranges* Atrial fibrillation ?2.0-3.0 INR Venous thrombo-embolism ?2.0-3.0 INR Bioprosthetic heart valve ?* Mechanical heart valve, bileaflet or tilting disk,aortic position ? 2.0-3.0 INR All other,or bileaflet or tilting disk, in mitral position ? 2.5-3.5 INR *See the pharmacy resource directory (PHRED) for an updated copy of the Tool Book at [email or web address] Current Interpretive Data was last revised 2011. Plasma 08/04/2014 11:0 0 AM CDT Law Palomares MD LAB BLOOD ORDERABLES Final Result Performing Organization Address [facility] de Phone Number HISTORICAL RESULTS * Blood partial thromboplastin time (PTT) (08/04/2014 11:00 AM CDT) APTT 32.4 25.0 - 37.0 seconds HISTORICAL RESULTS Comment: Interpretive Data Therapeutic heparin range:60.0 - 94.0 sec based on correlation with therapeutic heparin activity range of 0.3 -0.7 Units/mL. Current interpretive data was last revised on 2011. Blood specimen (specimen) 08/04/2014 11:00 AM CDT Law Palomares MD LAB BLOOD ORDERABLES Final Result Performing Organization Address [facility] de Phone Number HISTORICAL RESULTS * (ABNORMAL) Blood cell count (CBC) (08/04/2014 11:00 AM CDT) WBC 6.4 3.8 - 9.8 K/cumm HISTORICAL RESULTS RBC 4.70 3.90 - 5.00 M/cumm HISTORICAL RESULTS Hgb 13.4 12.1 - 15.1 g/dl HISTORICAL RESULTS Hct 41.7 36.1 - 44.3 % HISTORICAL RESULTS MCV 88.8 80.0 - 97.6 fl HISTORICAL RESULTS MCH 28.6 26.7 - 33.7 pg HISTORICAL RESULTS MCHC 32.2(L) 32.7 - 35.5 g/dl HISTORICAL RESULTS Rdw 13.6 11.8 - 14.6 % HISTORICAL RESULTS Platelets 239 140 - 440 K/cumm HISTORICAL RESULTS MPV 8.2 6.8 - 10.4 fl HISTORICAL RESULTS Neutrophils, abs 3.0 1.8 - 6.6 K/cumm HISTORICAL RESULTS Lymphocytes, abs 2.1 1.2 - 3.3 K/cumm HISTORICAL RESULTS Monocytes, absolute 0.7 0.2 - 1.2 K/cumm HISTORICAL RESULTS Eosinophils, abs 0.6(H) 0.0 - 0.5 K/cumm HISTORICAL RESULTS Basophils, abs 0.0 0.0 - 0.2 K/cumm HISTORICAL RESULTS Neutrophils 46.0 38.7 - 74.5 % HISTORICAL RESULTS Lymphocytes 33.3 20.0 - 54.3 % HISTORICAL RESULTS Monos 11.1 4.3 - 13.5 % HISTORICAL RESULTS Eosinophils 8.8(H) 0.0 - 6.0 % HISTORICAL RESULTS Basophils 0.8 0.0 - 3.0 % HISTORICAL RESULTS Blood specimen (specimen) 08/04/2014 11:00 AM CDT Law Palomares MD LAB BLOOD ORDERABLES Final Result HISTORICAL RESULTS * Blood ABO, Rh, indirect ab screen (08/04/2014 11:00 AM CDT) ABO, Rho(D) A Positive HISTORI YESENIA RESULTS Lila, indirect Negative HISTORICAL RESULTS Blood specimen (specimen) 08/04/2014 11:00 AM CDT Law Palomares MD LAB BLOOD ORDERABLES Final Result HISTORICAL RESULTS * Urine (aerobic) culture (08/04/2014 11:00 AM CDT) Organism ECOL^[id number] HISTORICAL RESULTS Urine, clean voided (Unknown) 08/04/2014 11:00 AM CDT 08/04/2014 1:10 PM CDT Narrative HISTORICAL RESULTS - 08/09/2014 1:56 PM CDT Greater than or equal to 50,000 colonies/ml of: Escherichia coli Plus growth of clinically insignificant bacterial ross. Organism Antibiotic Method Susceptibility Escherichia coli Ampicillin Susceptible Escherichia coli Cefazolin Susceptible Escherichia coli Nitrofurantoin Susceptible Escherichia coli Gentamicin Susceptible Escherichia coli Trimethoprim with Sulfamethoxazole Susceptible Escherichia coli Meropenem Susceptible Escherichia coli Cefepime Susceptible Escherichia coli Ciprofloxacin Susceptible Escherichia coli Ceftriaxone Susceptible Escherichia coli Piperacillin/Tazobactam Susceptible Escherichia coli Cephalexin Susceptible Escherichia coli Cefuroxime-axetil Susceptible Escherichia coli Cefdinir Susceptible us Historical Provider MD LAB MICROBIOLOGY - GENERA L ORDERABLES Final Result HISTORICAL RESULTS * All Microbiology Report Section (08/04/2014 12:00 AM CDT) 08/04/2014 Narrative HISTORICAL RESULTS - 08/09/2014 4:10 PM CDT ? [facility] ?[address] [facility] [address] ?[place], [place] [address] ? Patient Name: ??WOOD, LEISA ? Med Rec Number: [id number] ? Fin Number: ?[id number] ? Date: ?1945 ? Sex/Age: ? Female 69 years ? Admit Date: ?08/04/2014 ? Discharge Date: 08/04/2014 ? Doctor: ?Law Palomares ? Facility: ?[facility] ? Location: ?CPAP ?* Abnormal ??A Alert ??f Footnote ??^ Corrected ??L Low ??H High ?i Interp Data ??@ Ref Lab ? Chart Type:Cumulative ?* * * * MICROBIOLOGY - URINE * * * * ?PROCEDURE: Urine Culture ? SOURCE: Urine, clean voided ? COLLECTED: 08/04/ ??1100 ?BODY SITE: ? STARTED: 08/04/14 ??1310 ? FREE TEXT SOURCE: ? FINAL REPORT ? REPORTED: 08/09/14 1356 ? Greater than or equal to 50,000 colonies/ml of: Escherichia coli ? Plus growth of clinically insignificant bacterial ross. ? SUSCEPTIBILITY RESULTS ? Escherichia coli ?SUSCEPTIBLE: Ampicillin,Cefazolin, ? Nitrofurantoin,Gentamicin, ? Trimethoprim with Sulfamethoxazole, ? Meropenem,Cefepime,Ciprofloxacin, ? Ceftriaxone, ? Piperacillin/Tazobactam, ? Cephalexin,Cefuroxime-axetil, ? Cefdinir ? ORDER COMMENTS ? (1)Received in transport media. ? us Historical Provider MD LAB MICROBIOLOGY - GENERA L ORDERABLES Final Result HISTORICAL RESULTS * Discharge Laboratory Cumulative Report (08/04/2014 12:00 AM CDT) 08/04/2014 Narrative HISTORICAL RESULTS - 08/09/2014 3:29 PM CDT ?[facility] ?Department of Laboratories ? [address] [facility] [address] ? [place] [address] Patient Name: ??LEISA MUIR Rec Number: [id number] Fin Number: ?[id number] Date: ?1945 Sex/Age: ? Female 69 years Admit Date: ?08/04/2014 Discharge Date: 08/04/2014 Doctor: ?Law Palomares Facility: ?[facility] Location: ?CPAP Chart Printed: 08/09/2014 15:29 ?? * Abnormal ?? C Critical ?? f Footnote ?? ^ Corrected ?? L Low ?? H High ? i Interp Data ?? @ Reference Lab ? Chart Type:Periodic ? MICROBIOLOGY - ALL TESTS ? PROCEDURE: Urine Culture ?SOURCE: Urine, clean voided COLLECTED: 08/04/14 ??1100 ? BODY SITE: STARTED: 08/04/14 ??1310 FREE TEXT SOURCE: FINAL REPORT REPORTED: 08/09/14 1356 Greater than or equal to 50,000 colonies/ml of: Escherichia coli Plus growth of clinically insignificant bacterial ross. SUSCEPTIBILITY RESULTS Escherichia coli ? SUSCEPTIBLE: Ampicillin,Cefazolin, ?Nitrofurantoin,Gentamicin, ?Trimethoprim with Sulfamethoxazole, ?Meropenem,Cefepime,Ciprofloxacin, ?Ceftriaxone, ?Piperacillin/Tazobactam, ?Cephalexin,Cefuroxime-axetil, ?Cefdinir ORDER COMMENTS (1)Received in transport media. ? MICROBIOLOGY - URINE ? PROCEDURE: Urine Culture ?SOURCE: Urine, clean voided COLLECTED: 08/04/14 ??1100 ? BODY SITE: STARTED: 08/04/14 ??1310 FREE TEXT SOURCE: FINAL REPORT REPORTED: 08/09/14 1356 Greater than or equal to 50,000 colonies/ml of: Escherichia coli Plus growth of clinically insignificant bacterial ross. SUSCEPTIBILITY RESULTS Escherichia coli ? SUSCEPTIBLE: Ampicillin,Cefazolin, ?Nitrofurantoin,Gentamicin, ?Trimethoprim with Sulfamethoxazole, ?Meropenem,Cefepime,Ciprofloxacin, ?Ceftriaxone, ?Piperacillin/Tazobactam, ?Cephalexin,Cefuroxime-axetil, ?Cefdinir ORDER COMMENTS (1)Received in transport media. us Historical Provider LAB BLOOD ORDERABLES Linda l Result HISTORICAL RESULTS * ELECTROCARDIOGRAPHY (ECG) (08/04/2014) Narrative 08/04/2014 Ordered by an unspecified provider. Historical Provider ECG ORDERABLES Final Res ult documented in this encounter Visit Diagnoses Diagnosis Other specified pre-operative examination Pre-procedural laboratory examination Pre-operative cardiovascular examination Congenital spondylolisthesis Obesity Obesity, unspecified Esophageal reflux Family history of other cardiovascular diseases Family history of ischemic heart disease Encounter for long-term (current) use of other medications documented in this encounter
--- OUTSIDE RECORDS SUMMARY | 2024-05-05 15:31 | XMS_ITS | Encounter Summary ---
Author Organization [facility] Facility Care Team Providers Care Blocking Machine Operator Name Role Phone Unavailable Primary Care Provider Unavailabl e Encounter Details Date Type Department Care Team (Late st Contact Info) Description 08/12/2014 6:30 AM CDT - 08/12/2014 4:00 PM CDT [facility] CL[facility] Roberson MD [address] [place] [address] Social History Tobacco Use Types Packs/Day Years Used Date Smoking Tobacco: Never Assessed Comments Unknown Sex and Gender Information Value Date Recorded Sex Assigned at Not on file Legal Sex Female 1:41 AM VICE PRESIDENT DIVERSITY Gender Identity Female 12/19/2018 8:20 AM CDT Sexual Orientation Straight 08/07/2023 11 :02 AM CDT documented as of this encounter Plan of Treatment Not on file documented as of this encounter Visit Diagnoses Not on filedocumented in this encounter
--- OUTSIDE RECORDS SUMMARY | 2024-05-05 15:31 | XMS_ITS | Encounter Summary ---
Author Organization [facility] Facility Care Team Providers Care Airfield Manager Name Role Phone Unavailable Primary Care Provider Unavailabl e Encounter Details Date Type Department Care Team (Latest Contact Info) Description 03/21/2015 - 03/21/2015 11:59 PM PRESIDENT SALES AND MARKETING Hospital Encounter [facility] Law Perez MD [address] [place] [address] Low back pain; Other intervertebral disc degeneration, thoracolumbar region; Arthrodesis status Social History Tobacco Use Types Packs/Day Years Used Date Smoking Tobacco: Never Assessed Comments Unknown Sex and Gender Information Value Date Recorded Sex Assigned at Not on file Legal Sex Female 1:41 AM PRESIDENT SALES AND MARKETING Gender Identity Female 12/19/2018 8:20 AM CDT Sexual Orientation Straight 08/07/2023 11 :02 AM CDT documented as of this encounter Plan of Treatment Not on file documented as of this encounter Procedures Procedure Name Priority Date/Time Associated Diagnosis Comments XR SPINE LUMBAR 2 OR 3 VIEWS Routine 03/21/2015 1:44 PM PRESIDENT SALES AND MARKETING documented in this encounter Results * XR Spine Lumbar 2 Or 3 View (03/21/2015 1:44 PM PRESIDENT SALES [employer] MARKETING) Anatomical Region Laterality Modality Spine N/A Radiographic Gloria ging 03/21/2015 1:44 PM PRESIDENT SALES [employer] MARKETING Narrative 03/21/2015 1:50 PM PRESIDENT SALES AND MARKETING BRIGID FAUSTIN M.D. FINAL REPORT ACC# ??Date Time ??Exam [id number] Mar 21, 2015 13:44:00 [id number] Spine Lumbar 2 or 3 views EXAMINATION: ?Lumbar spine 2 or 3 views HISTORY: ??Lumbar spondylosis FINDINGS: ?? Three view examination of the lumbar spine is submitted with comparison to a prior study dated 12/13/2014. There is unchanged posterior decompression and posterior instrumented spinal fusion L2-L5 with anterior discectomy and interbody fusion L3-L5. The left L2 pedicle screw is proud to the anterior cortex, unchanged. Mild dextrocurvature of the lumbar spine with the apex at L3 is unchanged as is grade 1 anterolisthesis of L4 on L5. Moderate to severe degenerative disc disease at T12-L1 and L1-L2 is unchanged. IMPRESSION: ?? 1. Unchanged posterior decompression and posterior instrumented spinal fusion L2-L5 with anterior discectomy and interbody fusion L3-L5. 2. Unchanged moderate to severe degenerative disc disease T12-L2. Requested By: Dictated By: ?? BRIGID FAUSTIN M.D. ??on Mar 21 2015 ??1:50P This document has been electronically signed by: BRIGID FAUSTIN M.D. on Mar 21 2015 ??1:50P [id number] Procedure Note Provider, MD Ender - 08/23/2016 BRIGID FAUSTIN M.D. FINAL REPORT ACC# Date Time Exam [id number] Mar 21, 2015 13:44:00 [id number] Spine Lumbar 2 or 3 views EXAMINATION: Lumbar spine 2 or 3 views HISTORY: Lumbar spondylosis FINDINGS: Three view examination of the lumbar spine is submitted with comparison to a prior study dated 12/13/2014. There is unchanged posterior decompression and posterior instrumented spinal fusion L2-L5 with anterior discectomy and interbody fusion L3-L5. The left L2 pedicle screw is proud to the anterior cortex, unchanged. Mild dextrocurvature of the lumbar spine with the apex at L3 is unchanged as is grade 1 anterolisthesis of L4 on L5. Moderate to severe degenerative disc disease at T12-L1 and L1-L2 is unchanged. IMPRESSION: 1. Unchanged posterior decompression and posterior instrumented spinal fusion L2-L5 with anterior discectomy and interbody fusion L3-L5. 2. Unchanged moderate to severe degenerative disc disease T12-L2. Requested By: Dictated By: BRIGID FAUSTIN M.D. on Mar 21 2015 1:50P This document has been electronically signed by: BRIGID FAUSTIN M.D. on Mar 21 2015 1:50P [id number] us Historical Provider MD LOPEZ XR PROCEDURES Final R esult documented in this encounter Visit Diagnoses Diagnosis Low back pain Lumbago Other intervertebral disc degeneration, thoracolumbar region Arthrodesis status documented in this encounter
== END 2024-04-28 09:23 | disposition home or self-care (01) ==
PROVIDERS: PCP Emergency Medicine; Visit Provider Emergency Medicine
DX: R06.81 Apnea, not elsewhere classified (principal)
CPT/HCPCS: 93306

== ENCOUNTER 2025-01-29 09:13 | Outpatient (CLI) | payer MEDICARE, SELFPAY ==
--- NOTE | ~2025-01-29 | DEXA_ITS ---
Bone Density Report Name: JEANNE MUIR Age: 79 Sex: Female Ethnicity: White Date of : 1945 Indication: postmenopausal; screening for osteoporosis; height loss; hysterectomy; Referring Provider: ADRIÁN SERRANO Study: Bone densitometry was performed. Exam Date: January 29, 2025 Accession number: [id number] Bone Density: Region BMD T-score Z-score Classification Femoral Neck (Left) 0.797 -0.5 1.8 Normal Total Hip (Left) 0.868 -0.6 1.4 Normal Femoral Neck (Right) 0.732 -1.1 1.2 Osteopenia Total Hip (Right) 0.796 -1.2 0.8 Osteopenia Total Hip Mean 0.832 -0.9 1.1 Normal World Health Organization criteria for BMD impression classify patients as: Normal (T-score at or above -1.0), Osteopenia (T-score between -1.0 and -2.5), or Osteoporosis (T-score at or below -2.5). 10-year Fracture Risk(1): Major Osteoporotic Fracture 11% Hip Fracture 1.9% Reported Risk Factors: [place] (), Neck BMD=0.732, BMI=36.0 (1) FRAX(R) Version 3.08. Fracture probability calculated for an untreated patient. Fracture probability may be lower if the patient has received treatment. Previous Exams: -- Region Exam Age BMD T-score BMD Change BMD Change Date g/cm2 vs Baseline vs Previous -- Total Hip(Left) 01/29/2025 79 0.868 -0.6 -2.6% -2.8% 08/01/2022 77 0.894 -0.4 0.3% 0.3% 06/19/2019 73 0.892 -0.4 Total Hip(Right) 01/29/2025 79 0.796 -1.2 -7.3%* -6.4%* 08/01/2022 77 0.850 -0.8 -1.0% -1.0% 06/19/2019 73 0.859 -0.7 -- *Denotes significance at 95% confidence level, LSC for Total Hip = 0.027 g/cm2 Clinical Information Provided by Patient: Has used the following medications: Vitamin D, Calcium Has the following medical conditions: Hysterectomy Patient maximum height was 66 Menopause Age: 37 No regular weight bearing exercise Drinks caffeinated beverages Onset of menses at age 13 Number of children 2 Impression: The patient has low bone mass, based on the Right Total Hip T-score. The patient has an estimated ten-year risk of hip fracture of 1.9% and an estimated ten-year risk of major fracture of 11%, based on the WHO FRAX algorithm. The BMD for the Total Hip(Right) decreased, changing by -6.4% since the last DXA exam. Discussion: BONE DENSITY IS LOW AT ONE OR MORE SKELETAL SITES. This patient's lowest T-score is low at one or more skeletal sites. It meets the World Health Organization's (WHO) criteria for ?low bone mass? (T-score between -1.0 and -2.5). The patient's 10-year risk of fracture as calculated by FRAX is less than the threshold where pharmacological therapy is recommended by the National Osteoporosis Foundation (NOF). However, all treatment decisions require clinical judgment and consideration of individual patient factors, including patient preferences, comorbidities, previous drug use, risk factors not captured in the FRAX model (e.g., frailty, falls, vitamin D deficiency, increased bone turnover, interval significant decline in bone density) and possible under or overestimation of fracture risk by FRAX. The patient should follow a healthful lifestyle (good nutrition with adequate calcium and vitamin D, and appropriate weight-bearing exercise). Follow-Up: Consider repeating this study in 2 years to reassess this patient's status, or sooner if there is some new clinical indication. Reported by: VALENTINO on 01/29/2025 9:30:00 AM. Reviewed, dictated and finalized at location A.
== END 2025-01-29 09:14 | disposition home or self-care (01) ==
LOC: MICIMG 09:13
PROVIDERS: PCP Emergency Medicine; Visit Provider Emergency Medicine
DX: M85.89 Other specified disorders of bone density and structure, multiple sites (principal); Z78.0 Asymptomatic menopausal state
CPT/HCPCS: 77080